=== PATIENT | female | born 1950 | race Caucasian/White ===

== ENCOUNTER 2023-12-04 18:24 | Inpatient (IN) | payer OTHER, SELFPAY ==
[2023-12-04] VITALS (12 sets, daily range): BP systolic 126–198; BP diastolic 69–90; PULSE 60–99; RESP 16–18; TEMP 36.2–36.6; O2SAT 70–99; BMI 22.1
--- NOTE | 2023-12-04 18:41 | DI.RAD.S_ITS ---
PROCEDURE: XR HIP W PEL IF DONE RT 2V INDICATIONS: R hip pain TECHNIQUE: AP pelvis with lateral view(s) of the right hip(s). COMPARISON: None. FINDINGS: Bones: Displaced and impacted right femoral neck fracture. Pelvic ring appears intact. No suspicious bony lesions. Soft tissues: The visualized bowel gas pattern is normal. No suspicious soft tissue calcifications. Atherosclerotic vascular calcifications. IMPRESSION: Displaced and impacted right femoral neck fracture. Dictated by: John Daniels M.D. on 12/04/2023 at 19:26 Approved by: John Daniels M.D. on 12/04/2023 at 19:27
--- NOTE | 2023-12-04 18:41 | DI.RAD.S_ITS ---
PROCEDURE: XR FEMUR RT MIN 2V INDICATIONS: R leg pain TECHNIQUE: 4 views of the femur were acquired. COMPARISON: None. FINDINGS: Bones: Displaced and mildly impacted femoral neck fracture. No suspicious bony lesions. Soft tissues: No suspicious soft tissue calcifications or masses. Atherosclerotic vascular calcifications. IMPRESSION: Displaced and mildly impacted femoral neck fracture. Dictated by: John Daniels M.D. on 12/04/2023 at 19:20 Approved by: John Daniels M.D. on 12/04/2023 at 19:24
--- NOTE | 2023-12-04 18:41 | ED_ITS ---
HPI - Fall General Chief Complaint: Fall Stated Complaint: Right hip/leg pain, lateral rotation Time Seen by Provider: 12/04/23 18:33 Source: EMS Mode of arrival: EMS Limitations: other (Dementia) History of Present Illness HPI Narrative: 72-year-old female with a history of dementia at baseline is ambulatory per report. Not on anticoagulation. Is here for evaluation of right hip/leg pain. She was found by the nursing staff at the facility where she is staying sitting on the floor next to the bed. Patient does state that she is having pain in her right hip. Related Data Home Medications Medication Instructions Recorded Confirmed acetaminophen 325 mg tablet 650 mg PO Q6H PRN Pain (Scale 12/04/23 12/04/23 Score 1-3) aripiprazole 10 mg tablet 10 mg PO DAILY 12/04/23 12/04/23 blood sugar diagnostic (True 12/04/23 12/04/23 Metrix Glucose Test Strip) metformin 500 mg tablet,extended 500 mg PO BID 12/04/23 12/04/23 release 24 hr Allergies Allergy/AdvReac Type Severity Reaction Status Date / Time SULFA ANTIBIOTICS Allergy Uncoded 12/04/23 21:47 Review of Systems Constitutional Constitutional: Reports system reviewed and no additional complaints, except as documented Musculoskeletal Musculoskeletal: Reports system reviewed and no additional complaints, except as documented Integumentary/Breasts Skin/Breast: Reports system reviewed and no additional complaints, except as documented Neurologic Neurologic: Reports system reviewed and no additional complaints, except as documented Patient History Social History household members: none Smoking Status: Unknown if ever smoked Exam Initial Vital Signs Initial Vital Signs: Vital Signs Pulse Rate 83 12/04/23 18:27 Pulse Oximetry 96 12/04/23 18:27 Const General: cooperative HENMT Head: normal to inspection and normocephalic Resp Effort & Inspection: normal respiratory effort Cardio Rate: regular rate Neuro Other: Patient was confused about location. Extrem Other: Discomfort with palpation of the right hemipelvis. Right knee appears to be unremarkable. Course Orders Ordered: ED Orders 12/04/23 18:41 XR femur RT min 2V Stat XR hip w pel if done RT 2V Stat 12/04/23 19:17 Basic Metabolic Panel Stat Complete Blood Count AUTO DIFF Stat 12/04/23 19:38 Consult to Orthopedic Surgery Stat Acetaminophen (Acetaminophen 325 Mg Tablet) 650 mg PO Q6H PRN PRN Reason: Fever/Mild Pain (1-3) Enoxaparin Sodium (Enoxaparin 40 Mg/0.4 Ml Syringe) 40 mg SUBCUT DAILY [facility] Sodium Chloride (Normal Saline 0.9%) 1,000 mls @ 100 mls/hr IV CONT [facility] Last Infusion: 12/04/23 21:10 Dose: Infused Documented By: Admin: 12/04/23 19:10 Dose: 100 mls/hr Documented By: ADELINA Sodium Chloride (Normal Saline 0.9%) 1,000 mls @ 100 mls/hr IV CONT [facility] Last Admin: 12/04/23 22:54 Dose: 100 mls/hr Documented By: Dextrose ([id number]) 100 mls @ 999 mls/hr IV PRN PRN PRN Reason: Hypoglycemia Insulin Human Lispro (Insulin Lispro 100 Unit/Ml 3ml Vial) 0 unit SUBCUT [facility]; Protocol Last Admin: 12/04/23 22:57 Dose: 1 unit Documented By: SR Co-signed By: LORIN Morphine Sulfate (Morphine 4 Mg/Ml Inj) 3 mg IV Q2HR PRN PRN Reason: Pain, Severe (7-10) Naloxone HCl (Naloxone 0.4 Mg/Ml Vial) 0.2 mg IV Q2MIN PRN PRN Reason: Opiate Reversal Ondansetron HCl (Ondansetron 4 Mg/2 Ml Inj) 4 mg IV Q8HR PRN PRN Reason: Nausea And Vomiting Pantoprazole Sodium (Pantoprazole Dr 20 Mg Tablet) 20 mg PO 0600 [facility] Sennosides (Sennosides 8.6 Mg Tablet) 17.2 mg PO BEDTIME [facility] Last Admin: 12/04/23 22:52 Dose: Not Given Documented By: SR Discontinued Medications Insulin Human Lispro (Insulin Lispro 100 Unit/Ml 3ml Vial) 0 unit SUBCUT ACHS [facility]; Protocol Morphine Sulfate (Morphine 4 Mg/Ml Inj) 3 mg IV Q2HR [facility] Vital Signs Vital signs: Vital Signs - 8 hr 12/04/23 18:27 12/04/23 18:29 12/04/23 18:30 Temperature 97.9 F Pulse Rate 83 87 76 Respiratory Rate 16 Blood Pressure 133/69 Pulse Oximetry 96 97 97 Oxygen Delivery Method Room Air 12/04/23 19:14 12/04/23 19:14 12/04/23 19:30 Temperature Pulse Rate 94 H Respiratory Rate Blood Pressure 167/80 H 176/87 H Pulse Oximetry 98 Oxygen Delivery Method 12/04/23 19:30 12/04/23 19:37 12/04/23 20:01 Temperature Pulse Rate 97 H 60 Respiratory Rate Blood Pressure 198/90 H Pulse Oximetry 99 70 L Oxygen Delivery Method 12/04/23 20:07 12/04/23 20:08 Temperature Pulse Rate 99 H 99 H Respiratory Rate Blood Pressure Pulse Oximetry 99 96 Oxygen Delivery Method MDM - Fall Lab Data Attestation: I reviewed the patient's lab results. 12/04/23 19:17 12/04/23 19:17 Labs: Lab Results 12/04/23 Range/Units 19:17 WBC 12.3 H (4.5-11.0) X10^3/uL RBC 4.20 (4.0-5.2) X10^6/uL Hgb 12.2 (12.0-16.0) g/dL Hct 36.0 (36-46) % MCV 85.7 (80-100) fL MCH 29.1 (26-34) PG MCHC 34.0 (30-36) % RDW 12.9 (11.6-14.8) % Plt Count 326 (150-400) X10^3/uL Neut % (Auto) 84.0 H (50-75) % Lymph % (Auto) 9.8 L (25-40) % [place] % (Auto) 4.7 (3-14) % Eos % (Auto) 1.1 L (2-4) % Baso % (Auto) 0.4 (0-2) % Neut # (Auto) 63453 H (2512-5171) /uL Lymph # (Auto) 1200 (5203-3581) /uL [place] # (Auto) 600 (0-900) /uL Eos # (Auto) 100 (0-450) /uL Baso # (Auto) 100 (0-100) /uL Sodium 138 (137-145) mmol/L Potassium 3.5 (3.4-5.1) mmol/L Chloride 104 (98-107) mmol/L Carbon Dioxide 27 (22-32) mmol/L BUN 23 H (7-17) mg/dL Creatinine 0.74 (0.52-1.04) mg/dL Estimated GFR > 60 (>60) mL/min BUN/Creatinine Ratio 31.1 H (6-22) Glucose 259 H (80-110) mg/dL Calcium 9.7 (8.4-10.2) mg/dL Imaging Data Extremity x-ray #1: Radiologist's Impression: PROCEDURE: XR FEMUR RT MIN 2V INDICATIONS: R leg pain TECHNIQUE: 4 views of the femur were acquired. COMPARISON: None. FINDINGS: Bones: Displaced and mildly impacted femoral neck fracture. No suspicious bony lesions. Soft tissues: No suspicious soft tissue calcifications or masses. Atherosclerotic vascular calcifications. IMPRESSION: Displaced and mildly impacted femoral neck fracture. Extremity x-ray #2: Radiologist's Impression: PROCEDURE: XR HIP W PEL IF DONE RT 2V INDICATIONS: R hip pain TECHNIQUE: AP pelvis with lateral view(s) of the right hip(s). COMPARISON: None. FINDINGS: Bones: Displaced and impacted right femoral neck fracture. Pelvic ring appears intact. No suspicious bony lesions. Soft tissues: The visualized bowel gas pattern is normal. No suspicious soft tissue calcifications. Atherosclerotic vascular calcifications. IMPRESSION: Displaced and impacted right femoral neck fracture. MDM Narrative Medical decision making narrative: Baseline mental status per EMS. Does have a right femoral neck fracture. Discussed the case with on-call for Orthopedic surgery who will see the patient after admission. Discussed the admission with hospitalist on- call. I also discussed the case with the patient's son-in-law who is the reported power of divorce attorney. They do agree that the patient is DNR and comfort measures however they are amenable to discussions about surgery in order to have the patient potentially walk again. Discharge Plan Departure Patient Disposition: Admitted As Inpatient Clinical Impression: Femoral neck fracture Qualifiers: Encounter type: initial encounter Fracture type: closed Laterality: right Q ualified Code(s): S72.001A - Fracture of unspecified part of neck of right femur, initial encounter for closed fracture Admit Date/Time: 12/04/23 20:20 Admit Provider: Jaguar Zambrano
[2023-12-04] MEDS: SODIUM CHLORIDE 0.9% 1,000 ML 100 ML IV ×2 (19:10→22:54)
[2023-12-04 19:33] LABS: Add Manual Diff / Slide Review NO; Basophils Absolute Auto 100 /uL (0-100); Basophils Percent Auto 0.4 % (0-2); Eosinophils Absolute Auto 100 /uL (0-450); Eosinophils Percent Auto 1.1 % (2-4); Hemoglobin 12.2 g/dL (12.0-16.0); Lymphocytes Absolute Auto 1200 /uL (1100-4500); Lymphocytes Percent Auto 9.8 % (25-40); Mean Corpuscular Hemoglobin 29.1 PG (26-34); Mean Corpuscular Volume 85.7 fL (80-100); Monocytes Absolute Auto 600 /uL (0-900); Monocytes Percent Auto 4.7 % (3-14); Neutrophils Absolute Auto 10300 /uL (1500-7000); Platelet Count 326 X10^3/uL (150-400); Red Cell Distribution Width 12.9 % (11.6-14.8); White Blood Cell Count 12.3 X10^3/uL (4.5-11.0)
[2023-12-04 19:40] LABS: BUN Creatinine Ratio 31.1 (6-22); Blood Urea Nitrogen 23 mg/dL (7-17); Calcium 9.7 mg/dL (8.4-10.2); Carbon Dioxide 27 mmol/L (22-32); Chloride 104 mmol/L (98-107); Estimated Glomerular Filt Rate > 60 mL/min (>60); Glucose 259 mg/dL (80-110); HEMOLYSIS < 15 (0-50); Potassium 3.5 mmol/L (3.4-5.1); Sodium 138 mmol/L (137-145)
--- NOTE | 2023-12-04 22:11 | PM.HP.1 ---
History of Present Illness History of Present Illness Date Patient Seen: 12/04/23 Chief complaint: Right hip/leg pain, lateral rotation Narrative: The pt is a 72 yo from assisted living facility '[facility]' who was found by staff down and c/o pain in the Rt hip. EMS was called and brought to the ER. She has severe Alzheimer Disease and was not able to answer most questions by me. She is unsure of why she is in the hospital and does not think she is in the hospital. There is no family, and no care attendants by the bedside during my interview. She does not seem to be in distress, resting comfortably. PFSH Social History household members: none Smoking Status: Unknown if ever smoked Meds Home Medications and Allergies Home Medications Medication Instructions Recorded Confirmed Type acetaminophen 325 mg tablet 650 mg PO Q6H PRN Pain (Scale 12/04/23 12/04/23 History Score 1-3) aripiprazole 10 mg tablet 10 mg PO DAILY 12/04/23 12/04/23 History blood sugar diagnostic (True 12/04/23 12/04/23 History Metrix Glucose Test Strip) metformin 500 mg tablet,extended 500 mg PO BID 12/04/23 12/04/23 History release 24 hr Allergies Allergy/AdvReac Type Severity Reaction Status Date / Time SULFA ANTIBIOTICS Allergy Uncoded 12/04/23 21:47 Exam Vital Signs (past 8 hours): - 12/04/23 18:27 12/04/23 18:29 12/04/23 18:30 Temperature 97.9 F Pulse Rate 83 87 76 Respiratory Rate 16 Blood Pressure 133/69 Pulse Oximetry 96 97 97 Oxygen Delivery Method Room Air 12/04/23 19:14 12/04/23 19:14 12/04/23 19:30 Temperature Pulse Rate 94 H Respiratory Rate Blood Pressure 167/80 H 176/87 H Pulse Oximetry 98 Oxygen Delivery Method 12/04/23 19:30 12/04/23 19:37 12/04/23 20:01 Temperature Pulse Rate 97 H 60 Respiratory Rate Blood Pressure 198/90 H Pulse Oximetry 99 70 L Oxygen Delivery Method 12/04/23 20:07 12/04/23 20:08 12/04/23 20:30 Temperature Pulse Rate 99 H 99 H Respiratory Rate Blood Pressure 188/88 H Pulse Oximetry 99 96 Oxygen Delivery Method 12/04/23 21:00 Temperature Pulse Rate Respiratory Rate Blood Pressure 189/81 H Pulse Oximetry Oxygen Delivery Method Oxygen Delivery Method Room Air Const General: healthy appearing and comfortable Resp Auscultation: clear to auscultation bilaterally Cardio Rate: regular rate Rhythm: regular rhythm Objective Labs 12/04/23 19:17 12/04/23 19:17 Labs: Laboratory Results - last 24 hr 12/04/23 19:17 WBC 12.3 H RBC 4.20 Hgb 12.2 Hct 36.0 MCV 85.7 MCH 29.1 MCHC 34.0 RDW 12.9 Plt Count 326 Neut % (Auto) 84.0 H Lymph % (Auto) 9.8 L [place] % (Auto) 4.7 Eos % (Auto) 1.1 L Baso % (Auto) 0.4 Neut # (Auto) 92570 H Lymph # (Auto) 1200 [place] # (Auto) 600 Eos # (Auto) 100 Baso # (Auto) 100 Sodium 138 Potassium 3.5 Chloride 104 Carbon Dioxide 27 BUN 23 H Creatinine 0.74 Estimated GFR > 60 BUN/Creatinine Ratio 31.1 H Glucose 259 H Calcium 9.7 Assessment & Plan Assessment and plan (1) Femoral neck fracture: Qualifiers: Encounter type: initial encounter Fracture type: closed Laterality: right Qualified Code(s): S72.001A - Fracture of unspecified part of neck of right femur, initial encounter for closed fracture Status: Acute (2) Dementia: Status: Acute Plan I spoke with the ER provider regarding the pt's presenting condition and labs and agree with the admission. The pt is calm and in no distress, will have prn pain meds available and antiemetics. Orthopedic physician Dr. Santoyo has been consulted by the ER provider who will evaluate the pt in the AM. NS has been started, home meds reviewed, NPO until ortho sees her. Pt is a DNR/DNI per paperwork from the facility Quality VTE Deep Vein Thrombosis/Pulmonary Embolism Present on Admission: No
[2023-12-04] MEDS: INSULIN LISPRO 100 UNIT/ML 3ML VIAL SUBCUT (22:57)
[2023-12-05] VITALS (13 sets, daily range): BP systolic 99–144; BP diastolic 57–70; PULSE 76–96; RESP 14–18; TEMP 36.2–38.1; O2SAT 92–98; BMI 22.1
--- NOTE | 2023-12-05 | DI.RAD.S_ITS ---
PROCEDURE: XR HIP W PEL IF DONE RT 2V INDICATIONS: JAG TECHNIQUE: AP pelvis and lateral view of the hip acquired. COMPARISON: [facility], CR, XR HIP W PEL IF DONE RT 2V, 12/04/2023, 18:50. [facility], CR, XR HIP W PEL IF DONE RT 2V, 12/05/2023, 22:42. FINDINGS: Intraoperative fluoroscopy images demonstrate right hip arthroplasty. IMPRESSION: Right hip arthroplasty. Dictated by: Mg Murillo M.D. on 12/06/2023 at 2:02 Approved by: Mg Murillo M.D. on 12/06/2023 at 2:03
[2023-12-05] MEDS: MORPHINE 4 MG/ML INJ 3 MG IV ×3 (04:35→14:43)
[2023-12-05 06:50] LABS: Add Manual Diff / Slide Review NO; Basophils Absolute Auto 0 /uL (0-100); Basophils Percent Auto 0.3 % (0-2); Eosinophils Absolute Auto 100 /uL (0-450); Hematocrit 30.4 % (36-46); Hemoglobin 10.7 g/dL (12.0-16.0); Lymphocytes Absolute Auto 900 /uL (1100-4500); Lymphocytes Percent Auto 9.1 % (25-40); Mean Corpuscular HGB Conc 35.1 % (30-36); Mean Corpuscular Hemoglobin 29.9 PG (26-34); Mean Corpuscular Volume 85.1 fL (80-100); Monocytes Absolute Auto 500 /uL (0-900); Monocytes Percent Auto 5.4 % (3-14); Neutrophils Absolute Auto 8000 /uL (1500-7000); Neutrophils Percent Auto 84.2 % (50-75); Platelet Count 264 X10^3/uL (150-400); Red Blood Cell Count 3.58 X10^6/uL (4.0-5.2); Red Cell Distribution Width 12.7 % (11.6-14.8); White Blood Cell Count 9.5 X10^3/uL (4.5-11.0)
[2023-12-05 07:00] LABS: Hemoglobin A1C% w Est Avg Glu 7.4 % (4.0-6.0)
[2023-12-05 07:15] LABS: BUN Creatinine Ratio 27.3 (6-22); Blood Urea Nitrogen 18 mg/dL (7-17); Carbon Dioxide 28 mmol/L (22-32); Chloride 108 mmol/L (98-107); Estimated Glomerular Filt Rate > 60 mL/min (>60); Glucose 203 mg/dL (80-110); HEMOLYSIS < 15 (0-50)
[2023-12-05 07:38] LABS: Calcium 8.8 mg/dL (8.4-10.2); Potassium 3.7 mmol/L (3.4-5.1); Sodium 138 mmol/L (137-145)
[2023-12-05] MEDS: INSULIN LISPRO 100 UNIT/ML 3ML VIAL SUBCUT (08:41)
[2023-12-05] MEDS: SODIUM CHLORIDE 0.9% 1,000 ML 100 ML IV (08:46)
--- NOTE | 2023-12-05 11:29 | CM.DANOTE ---
DCP Assessment Note Pt is a 72yo F, resident of [place], presented with R hip pain/fracture. Pt lives at [facility], a memory care center. PCP: Ragini Rolle. Payor: [facility] [employer] Reviewed chart and team rounds for pt's medical status and initial discharge needs. TROUBLE CLERK attempted to meet with pt but pt was asleep and per EMR, not the best historian due to dementia. TROUBLE CLERK spoke with DPOA/Son-in-law, Shahab Barclay who lives in [facility], via phone call. DPOA was able to confirm pt's short term memory is sketchy which is why she was moved out of her home to a Memory care center ~7 months ago. DPOA stated anticipating coordinating SNF placement before returning to [facility] and inquired about Medicare benefit. TROUBLE CLERK provided information about Medicare benefit and plan of care pending PT/OT recommendations. DPOA stated a preference for SNF closer to [facility] for ease of travel for visitation. DPOA noted that they had scheduled travel on Friday, 4.17 and hopes to have her either placed or back at [facility] before then, if possible. Plan: Pt scheduled to have surgery today, 4.12, and family is anticipating possible SNF placement before returning to [facility]. CM team will plan to follow clinical course closely for assessment of need and coordination of discharge plan. JAZLYN Solis Discharge Planning/Care Management CM Discharge Assessment Start: 12/05/23 11:26 Freq: Status: Active Protocol: Document 12/05/23 11:26 MW (Rec: 12/05/23 11:29 MW [id number]) Discharge Planning Assessment Assigned Supervisor [employer] QUINTIN Ness DPOA/Assigned Designee Name Shahab Barclay, Son-in-law Contact Information [phone] Advance Directives? Yes Advance Directives on File No History Provided By Family Member,Medical Record Has Patient been admitted in last 30 No days? Prior Living Arrangements Assisted Living Comment [facility] Household Members none Type of transporation used prior to Relies on Others admit Facility Name Admitted From: [facility] Willing to Return to Facility? Yes Independent with ADL's No Is patient alert and oriented? No Patient/Family Preference Intermediate Facility Discharge Plan Intermediate Facility Whiteboard Updated in Patient Room with Yes name and ext. # of Supervisor [employer] Comment TROUBLE CLERK spoke with pt's ARACELIS, Shahab, and provided direct extension to DCP desk if further concerns or questions. Please Provide Date Initial DC 12/05/23 Assessment Was Performed Next Review Type Continued Stay Review
--- NOTE | 2023-12-05 12:46 | DIET.CONS2 ---
Dietary Inpatient Consultation Note Admission Date: 12/04/2023 20:20 72 y F admitted for R hip pain/fracture. Nutrition screened for low MNA. Pt has severe Alzheimer Disease living in memory care center. Scheduled for OR today. Chart reviewed. No weight hx available for review. Will continue to monitor for diet advancement and intake to assess nutritional status. Diet: 12/04/23 22:08 NPO Diet Diet Modifications: NPO Type: NPO except for Meds Nutrition Percent Meal Consumed pt npo 12/05/23 08:00 Electronically Signed by: Silke Loja 12/05/23 12:46 Clinical Dietitian [address] [address]
--- NOTE | 2023-12-05 13:21 | PM.PN.1 ---
Subjective Subjective Interval history: 72 F with dementia admitted with a R hip fracture. Pending OR today. Patient complains of pain, having intermittent hallucinations per nursing staff, did not get abilify this morning. She has some hip pain this morning, okay at rest. She thinks she needs to return to work today. Exam Vital Signs (past 8 hours): - 12/05/23 05:55 12/05/23 08:00 Temperature 98.4 F 97.1 F L Pulse Rate 78 76 Respiratory Rate 18 16 Blood Pressure 134/61 140/70 Pulse Oximetry 97 96 Oxygen Flow Rate 0 Oxygen Delivery Method Room Air Oxygen Flow Rate 0 Narrative Exam Narrative: Gen: no acute distress, WDWN Pulm CTA b/l CV: RRR no m/r/g Abd: S NT ND Ext: no edema. Objective Labs 12/05/23 06:10 12/05/23 06:10 Labs: Laboratory Results - last 24 hr 12/04/23 12/05/23 19:17 06:10 WBC 12.3 H 9.5 RBC 4.20 3.58 L Hgb 12.2 10.7 L Hct 36.0 30.4 L MCV 85.7 85.1 MCH 29.1 29.9 MCHC 34.0 35.1 RDW 12.9 12.7 Plt Count 326 264 Neut % (Auto) 84.0 H 84.2 H Lymph % (Auto) 9.8 L 9.1 L [place] % (Auto) 4.7 5.4 Eos % (Auto) 1.1 L 1.0 L Baso % (Auto) 0.4 0.3 Neut # (Auto) 72481 H 8000 H Lymph # (Auto) 1200 900 L [place] # (Auto) 600 500 Eos # (Auto) 100 100 Baso # (Auto) 100 0 Sodium 138 138 Potassium 3.5 3.7 Chloride 104 108 H Carbon Dioxide 27 28 BUN 23 H 18 H Creatinine 0.74 0.66 Estimated GFR > 60 > 60 BUN/Creatinine Ratio 31.1 H 27.3 H Glucose 259 H 203 H Hemoglobin A1c 7.4 H Calcium 9.7 8.8 PFSH Social History household members: none Smoking Status: Unknown if ever smoked Assessment & Plan Assessment & Plan narrative: 1. Pathologic R femur fracture due to osteoporosis, present on admission - OR planned for afternoon. - hold DVT ppx prior to surgery - medically appears optimized prior to surgery 2. DM 2 - monitor with AM labs, on minimal metformin which can be continued shortly after surgery. Glucose 203 this AM, will follow closely. A1c 7.4%. - glucose 130s this afternoon, continue sliding scale only. 3. Dementia with behavioral disturbance - continue aripiprazole, after surgery consider low dose haldol or giving held abilify from this AM. Code: DNR, surrogate garret anguiano Dispo: admit inpatient Quality VTE Deep Vein Thrombosis/Pulmonary Embolism Present on Admission: No
[2023-12-05] MEDS: LACTATED RINGERS 1,000 ML 42 ML IV ×2 (18:42→22:49)
--- NOTE | 2023-12-05 18:44 | PC.NURSE ---
To OR at about 1800. Still having some hallucinations. The family reports this is not unusual for her, she will see her mother and speak to her as if she is there. Pt is only oriented to name if you say her name. She is unable to say her name if you ask her. Knows her birthday if you tell her that. Otherwise globally disoriented. Asking for water most of day, she was unable to understand why she needed surgery and if she should even have it. Family is here. They report her behavior as typical. The daughter did say the pt can become combative. She has not displayed that behavior today. CO made aware in case a bed change should be needed. Pt has been typed and crossed for blood and blood consent has been signed.
--- NOTE | 2023-12-05 20:15 | PM.HP.1 ---
History of Present Illness History of Present Illness Date Patient Seen: 12/05/23 Time Patient Seen: 20:15 Date of Onset of Symptoms: 12/04/23 Chief complaint: Right hip/leg pain, lateral rotation Narrative: This 70-year-old female patient is institutionalized in a memory care facility. She had a fall off of her bed yesterday around 5:00 p.m.. She began screaming in pain and was found on the ground. She was brought here immediately. I obtained history from her daughter and son-in-law who have provided informed consent for today's procedure as well. In discussions with them they stated that she has diabetes well controlled with metformin but otherwise minimal medical comorbidities of which they are aware. She continues to complain of pain in her right hip although at times today she has asked why she is at the hospital [facility] Social History household members: none Smoking Status: Unknown if ever smoked Meds Home Medications and Allergies Home Medications Medication Instructions Recorded Confirmed Type acetaminophen 325 mg tablet 650 mg PO Q6H PRN Pain (Scale 12/04/23 12/04/23 History Score 1-3) aripiprazole 10 mg tablet 10 mg PO DAILY 12/04/23 12/04/23 History blood sugar diagnostic (True 12/04/23 12/04/23 History Metrix Glucose Test Strip) metformin 500 mg tablet,extended 500 mg PO BID 12/04/23 12/04/23 History release 24 hr Allergies Allergy/AdvReac Type Severity Reaction Status Date / Time Sulfa (Sulfonamide Allergy Verified 12/05/23 11:22 Antibiotics) Review of Systems Review of Systems ROS: Yes All systems reviewed with the patient and are negative except as otherwise documented Exam Vital Signs (past 8 hours): - 12/05/23 13:00 12/05/23 15:19 12/05/23 18:31 Temperature 98.4 F 100.5 F H Pulse Rate 92 H 96 H 90 Respiratory Rate 16 16 Blood Pressure 142/57 H 144/65 H 126/65 Pulse Oximetry 96 98 95 Oxygen Delivery Method Room Air Oxygen Delivery Method Room Air Oxygen Flow Rate 0 Narrative Exam Narrative: Right lower extremity: Sensory motor function grossly intact. Does not follow commands. Foot warm and well perfused HENMT Head: normal to inspection Ears: hearing grossly normal bilaterally Eyes General: appearance normal, both eyes and all related structures Neck Neck: normal visual inspection Resp Effort & Inspection: normal respiratory effort and able to speak in complete sentences Cardio Pulses: other (peripheral pulses present) Skin Lesions: no lesions Rashes: no rashes Neuro General: patient alert, patient awake and moves all extremities Objective Imaging Pelvis x-ray: My impression: Displaced right femoral neck fracture Labs 12/05/23 06:10 12/05/23 06:10 Labs: Laboratory Results - last 24 hr 12/05/23 12/05/23 06:10 17:45 WBC 9.5 RBC 3.58 L Hgb 10.7 L Hct 30.4 L MCV 85.1 MCH 29.9 MCHC 35.1 RDW 12.7 Plt Count 264 Neut % (Auto) 84.2 H Lymph % (Auto) 9.1 L [place] % (Auto) 5.4 Eos % (Auto) 1.0 L Baso % (Auto) 0.3 Neut # (Auto) 8000 H Lymph # (Auto) 900 L [place] # (Auto) 500 Eos # (Auto) 100 Baso # (Auto) 0 Sodium 138 Potassium 3.7 Chloride 108 H Carbon Dioxide 28 BUN 18 H Creatinine 0.66 Estimated GFR > 60 BUN/Creatinine Ratio 27.3 H Glucose 203 H Hemoglobin A1c 7.4 H Calcium 8.8 Blood Type B Positive Antibody Screen Negative Crossmatch See Detail Assessment & Plan Assessment and plan (1) Femoral neck fracture: Qualifiers: Encounter type: initial encounter Fracture type: closed Laterality: right Qualified Code(s): S72.001A - Fracture of unspecified part of neck of right femur, initial encounter for closed fracture Status: Acute Plan Cemented right hip hemiarthroplasty today. Operative site initialed. Informed consent signed by family. Will eventually discharge to a rehab facility following surgery. Quality VTE Deep Vein Thrombosis/Pulmonary Embolism Present on Admission: No
[2023-12-05] MEDS: CEFAZOLIN 2 GM/100 ML PREMIX 100 ML IV (20:45)
--- NOTE | 2023-12-05 20:49 | SUR.OPER ---
Supine on padded [place] table with bilateral legs secured in padded positioning boots and suspended in positioning spars, operative leg in traction per surgeon. Head on one pillow. Arm on non-operative side secured on padded armboard <90 degrees abduction. Arm on operative side padded and resting across chest then secured with tape over sheet. Padded perineal post in place per surgeon.
[2023-12-05] MEDS: TRANEXAMIC ACID 1,000 MG VIAL 2000 MG INJ (20:55)
[2023-12-05] MEDS: ROPIVACAINE/EPI/CLONIDINE/KET 50 ML SYRINGE INJ (20:58)
[2023-12-05] MEDS: SODIUM CHLORIDE IRRIG SOLUTION 250 ML, EPINEPHrine 1 MG IRR (21:03)
--- NOTE | 2023-12-05 22:40 | PM.OP.1 ---
Operative Date/Time/Diagnoses Date of procedure: 12/05/23 Pre-op diagnosis: Right femoral neck fracture Post-op diagnosis: same Procedure & Clinicians Procedure: Right hip hemiarthroplasty (18358) Same procedure as scheduled: Yes Surgeon: José Arenas Click Yes if Unassisted: Yes Anesthesia Type: General and Local Operative Notes Estimated Blood Loss (mL): 500 Procedure in detail: Right Cemented Hip Hemiarthroplasty for Femoral Neck Fracture Implants: [employer] Polarstem Cemented Hemiarthroplasty: Size 4 standard offset stem, 45 mm -3 unipolar cobalt chromium head Procedure in Detail: This patient sustained a femoral neck fracture in a ground level fall. Risks and benefits of operative versus nonoperative management were discussed at length and the patient wished to proceed with operative management. ?The patient was met in the preoperative holding area along with her power of admitted attorneys and her daughter. ?All questions were answered. ?The operative site was marked. ?Informed consent was signed. ?The patient was brought back to the operating room and anesthesia was induced. ?A time-out procedure was performed. ?The patient was brought back to the operating room and placed supine on the [place] table. All bony prominences were padded. She was prepped and draped in the usual sterile fashion. No physician clinical education assistant was available for the procedure so I used the docTrackr Gripper system for soft tissue retraction. A time-out procedure was performed following our usual inpatient protocol. She was prepped and draped in the usual sterile fashion. X-rays were displayed during the procedure demonstrating the fracture pattern on the injured hip. I began by making a direct anterior approach to the hip. The TFL and rectus muscles were split and I dissected through the floor of the TFL. The lateral circumflex vessels were identified and coagulated. Cobra retractors were placed superior and inferior to the femoral neck. I released the indirect head of rectus femoris. I made a longitudinal capsulotomy. I placed tag stitches in the capsule. I placed a soft tissue retractor over the tag stitches which remained in place for the remainder of the procedure. I replaced the Cobra retractors intracapsularly. The femoral neck was re-cut with a freshening cut below the site of the femoral neck fracture. The head was removed and measured to determine the appropriate head size for final implants. Because the head was damaged I used head trials to confirm this and found that a 45 mm head fit appropriately in the [place] acetabulum. I placed a retractor over the greater trochanter and released the capsule in 90? of external rotation. I placed a [place] hook and hyperextended and adducted the leg with traction off. I externally rotated to approximately 130? and performed a release of the conjoined tendon. I elevated the femur. I broached up to a size 4 cemented stem. Calcar planing was not necessary as the broach sat directly at the saw cut. I placed trial components and removed all retractors and reduced the hip. I found that it was challenging to reduce, slightly long on the AP fluoroscopic image, and had appropriate canal fill on the AP hip image. I returned to the broaching position replaced retractors and elevated the femur. I then prepared for cementation. Prior to cementation I irrigated the canal, placed a cement restrictor, irrigated the canal again, placed epinephrine-soaked vaginal packing with a whistle-tip catheter, and removed the whistle-tip catheter after insertion of cement. Cement was allowed to dry and I repeated the trialing process. And this is since I used a-3 45 mm head. I still required assistance to reduced the hip. An AP fluoroscopic image demonstrated appropriate leg length and offset. An AP hip image demonstrated good cement interdigitation in the bone and appropriate stem sizing. The hip was stable with maximum external rotation past 120? as well as a 45 degree drop test. I returned to the broaching position. Unipolar hemiarthroplasty head was impacted into place on a clean dry trunnion. All retractors were removed and the hip was reduced. Fluoroscopic images were obtained demonstrating appropriate leg length and offset on an AP pelvis image as well as appropriate positioning of the stem on an AP hip image. The hip was stable with maximum external rotation as well as a 45 degree drop test. The wound was soaked with dilute Betadine and peroxide. The hip was closed using a combination of Vicryl Stratafix and Monocryl sutures. A dilute mixture of ropivacaine epinephrine clonidine and Toradol was infiltrated throughout the wound after closure of the TFL fascia. Dermabond was applied. A ricky dressing was applied. The patient was transferred off of the operating room table and brought to the PACU where she awoke without complication. She was noted to have intact dorsiflexion and plantar flexion of her hallux and ankle as well as a palpable DP pulse. Postoperative images were obtained which corresponded with the intraoperative fluoroscopy. ? Plan for aftercare: Transfer to floor following recovery in PACU Weightbearing as tolerated Mobilize in the halls with assistance of physical therapy beginning tomorrow Aspirin 81 twice per day for DVT prophylaxis Multimodal pain regimen with no IV opioids ordered Anticipate discharge to a rehab facility Follow up at [facility] in 2 weeks
--- NOTE | 2023-12-05 22:52 | DI.RAD.S_ITS ---
PROCEDURE: XR HIP W PEL IF DONE RT 2V INDICATIONS: postop TECHNIQUE: AP pelvis and lateral view of the hip acquired. COMPARISON: [facility], CR, XR FEMUR RT MIN 2V, 12/04/2023, 18:50. [facility], CR, XR HIP W PEL IF DONE RT 2V, 12/04/2023, 18:50. [facility], CR, XR HIP W PEL IF DONE RT 2V, 12/05/2023, 21:42. FINDINGS: Bones: Patient is status post right hip arthroplasty, with hardware components in expected positions. The hip joint appears congruent. The visualized bony structures appear intact. Soft tissues: Overlying postoperative changes are noted. No suspicious soft tissue densities. IMPRESSION: Expected post-operative appearance of a hip arthroplasty. Dictated by: Mg Murillo M.D. on 12/06/2023 at 2:03 Approved by: Mg Murillo M.D. on 12/06/2023 at 2:03
[2023-12-05] MEDS: LACTATED RINGERS 1,000 ML 100 ML IV (23:25)
--- NOTE | 2023-12-05 23:35 | PC.NURSE ---
Addendum entered by Janeth Carmichael R.N. 12/06/23 05:22: Patient has been resting in bed this shift. Sleeping since back from surgery at 2300, does wake up easily and follows simple commands. No pain meds given after surgery, no moaning or grimacing noted. Patient confused d/t dementia, but has been calm. Original Note: Patient back from surgery at 2300, very groggy. Drsg to rt hip cdi and patient able to move toes, ppp.
[2023-12-06] VITALS (8 sets, daily range): BP systolic 92–110; BP diastolic 48–60; PULSE 79–95; RESP 16–18; TEMP 36.1–36.7; O2SAT 93–98
[2023-12-06] MEDS: CEFAZOLIN 2 GM/100 ML PREMIX 100 ML IV (05:01)
[2023-12-06 06:55] LABS: Add Manual Diff / Slide Review NO; Basophils Absolute Auto 0 /uL (0-100); Basophils Percent Auto 0.2 % (0-2); Eosinophils Absolute Auto 0 /uL (0-450); Eosinophils Percent Auto 0.1 % (2-4); Hematocrit 34.2 % (36-46); Hemoglobin 11.7 g/dL (12.0-16.0); Lymphocytes Absolute Auto 400 /uL (1100-4500); Lymphocytes Percent Auto 3.3 % (25-40); Mean Corpuscular HGB Conc 34.1 % (30-36); Mean Corpuscular Volume 87.8 fL (80-100); Monocytes Absolute Auto 400 /uL (0-900); Monocytes Percent Auto 2.7 % (3-14); Neutrophils Absolute Auto 12700 /uL (1500-7000); Neutrophils Percent Auto 93.7 % (50-75); Platelet Count 212 X10^3/uL (150-400); Red Cell Distribution Width 13.6 % (11.6-14.8); White Blood Cell Count 13.6 X10^3/uL (4.5-11.0)
[2023-12-06 07:04] LABS: Blood Urea Nitrogen 18 mg/dL (7-17); Calcium 8.5 mg/dL (8.4-10.2); Carbon Dioxide 19 mmol/L (22-32); Chloride 107 mmol/L (98-107); Estimated Glomerular Filt Rate > 60 mL/min (>60); Glucose 306 mg/dL (80-110); HEMOLYSIS < 15 (0-50); Magnesium 1.6 mg/dL (1.6-2.3); Potassium 4.3 mmol/L (3.4-5.1); Sodium 135 mmol/L (137-145)
[2023-12-06] MEDS: DOCUSATE 100 MG CAPSULE PO ×2 (08:28→22:18)
[2023-12-06] MEDS: ARIPiprazole 10 MG TABLET PO (08:28)
[2023-12-06] MEDS: MAGNESIUM CHLORIDE 64 MG TABLET 128 MG PO (08:28)
--- NOTE | 2023-12-06 08:48 | PM.PNPO.1 ---
Subjective Subjective Date Patient Seen: 12/06/23 Time Patient Seen: 08:48 Interval history: 72-year-old female who resides in a memory care facility. Patient denies pain. Patient is alert but not oriented. Exam Vital Signs (past 8 hours): - 12/06/23 01:07 12/06/23 02:07 12/06/23 06:10 Temperature 97.4 F L 96.9 F L Pulse Rate 79 80 87 Respiratory Rate 16 16 18 Blood Pressure 92/48 L 98/50 L 108/57 L Pulse Oximetry 93 95 96 Oxygen Flow Rate 0 0 0 Oxygen Delivery Method Room Air Oxygen Flow Rate 0 Narrative Exam Narrative: 72-year-old female resting comfortably in bed in no apparent distress. Right hip dressing is clean, dry and intact. Half of the dressing is rolled up. The incision itself is healing well. Motor functions intact bilateral lower extremities. Sensation grossly intact to light touch bilateral lower extremities. Const General: comfortable Nutritional Appearance: average body habitus Orientation: alert Objective Labs 12/06/23 06:29 12/06/23 06:29 Labs: Laboratory Results - last 24 hr 12/05/23 12/06/23 17:45 06:29 WBC 13.6 H RBC 3.90 L Hgb 11.7 L Hct 34.2 L MCV 87.8 MCH 30.0 MCHC 34.1 RDW 13.6 Plt Count 212 Neut % (Auto) 93.7 H Lymph % (Auto) 3.3 L [place] % (Auto) 2.7 L Eos % (Auto) 0.1 L Baso % (Auto) 0.2 Neut # (Auto) 92786 H Lymph # (Auto) 400 L [place] # (Auto) 400 Eos # (Auto) 0 Baso # (Auto) 0 Sodium 135 L Potassium 4.3 Chloride 107 Carbon Dioxide 19 L BUN 18 H Creatinine 0.75 Estimated GFR > 60 BUN/Creatinine Ratio 24.0 H Glucose 306 H D Calcium 8.5 Magnesium 1.6 Blood Type B Positive Antibody Screen Negative Crossmatch See Detail [facility] Social History household members: none Smoking Status: Unknown if ever smoked Assessment & Plan Post-op Postoperative Procedures: Procedures Operation Date: 12/05/23 17:15 Actual Procedure Side Surgeon p Hip Hemiarthroplasty Right José Arenas MD Postoperative day: 21 Postoperative status narrative: Stable status post right cemented hip hemiarthroplasty for femoral neck fracture Postoperative plan narrative: Weight-bearing as tolerated Multimodal pain management Aspirin 81 mg b.i.d. for DVT prophylaxis Follow up [facility] in 2 weeks Disposition, when medically stable per hospitalist Quality VTE Deep Vein Thrombosis/Pulmonary Embolism Present on Admission: No
[2023-12-06] MEDS: INSULIN LISPRO 100 UNIT/ML 3ML VIAL SUBCUT ×4 (09:37→22:37)
[2023-12-06] MEDS: ENOXAPARIN 40 MG/0.4 ML SYRINGE SUBCUT (09:39)
--- NOTE | 2023-12-06 11:05 | PT.IIE ---
Current Diagnoses Unspecified dementia, unspecified severity, without behavioral disturbance, psychotic disturbance, mood disturbance, and anxiety (12/04/23) Fracture of unspecified part of neck of right femur, initial encounter for closed fracture (12/04/23) Surgery Performed Operation Date: 12/05/23 17:15 Actual Procedures p Hip Hemiarthroplasty(Right) - José Arenas MD Physical Therapy Inpatient Evaluation/Re-Eval M1 PT/OT-IP Prior Functional Status Start: 12/06/23 12:52 Freq: NEEDED Status: Active Protocol: Document 12/06/23 11:05 AB (Rec: 12/06/23 13:06 AB [id number]) Medical Review Prior Functional Status Medical History Reviewed Yes Communication with confusion and unable to follow directions Mobility and Gait unable to obtain PLOF and home set up but per ED note: pt was independent with ambulation Social History Household Members none Living Arrangements Other Number of Stairs To Enter/Railing? per EMR: [facility] lives [facility] M2 PT-IP Current Condition Start: 12/06/23 12:52 Freq: NEEDED Status: Active Protocol: Document 12/06/23 11:05 AB (Rec: 12/06/23 13:06 AB [id number]) Physical Therapy Current Condition Current Condition Evaluation Date 12/06/23 Treatment Diagnosis s/p fall; s/; R hip hemiarthroplasty; difficulty in walking Onset Date 12/04/23 M3 PT-IP Subjective Start: 12/06/23 12:52 Freq: NEEDED Status: Active Protocol: Document 12/06/23 11:05 AB (Rec: 12/06/23 13:06 AB [id number]) Subjective Physical Therapy Visit Type Type Initial Evaluation Visit Start Time 11:05 Visit Stop Time 11:45 Number of LAMP DECORATOR Visits 0 Therapy Pain Assessment Pain When Pain Assessed During Mobility Location Right Hip Scale Used unable to state pain scale M4 PT-IP Mobility and Gait Start: 12/06/23 12:52 Freq: NEEDED Status: Active Protocol: Document 12/06/23 11:05 AB (Rec: 12/06/23 13:06 AB [id number]) PT-Bed Mobility Assessment Supine to Sit Supine to Sit Total Assistance,2 Person Assistance,Head of Bed Elevated,Bedrails Sit to Supine Sit to Supine Total Assistance,2 Person Assistance Scooting Scooting to Edge of Bed Dependent PT-Transfer Assessment Sit to and From Stand Sit to and from Stand Total Assistance,2 Person Assistance,Use of Upper Extremities Equipment Transfer Assistive Device Gait Belt,Front Wheeled Walker Orthotic/Prosthetic Devices or Brace: No Comments Mobility Comments pt supine in bed and with confusion. unable to obtain PLOF and home set up. pt only oriented to self. pt can be resistive, agitated easily and accusatory. informed pt regarding current place situation and recent surgery. informed pt regarding anterior hip precautions but pt unable to comprehend. completed supine to sit total A x 2 and max cues. pt with increase confusion and slight hallucinations and unable to redirect. pt also seems to have L sided neglect. pt with increase resistance, increase posterior trunk lean and fear of falling. required initial max A x 1-2 for sitting on EOB but able to sit CGA after repostioning. instructed pt with sit<>stand x 3 attempts total A x 2 and max cues and with increase resistance and pt pushing backwards. assisted pt back to bed total A x 2 and max cues with pt unable to follow directions. positioned pt in bed. call light and table placed within reach. left pt with NAC. Gait Assessment Comments Gait Comments unable at this time PT-Balance Assessment Sitting Balance and Reactions Static Sitting Balance Ability Fair Dynamic Sitting Balance Ability Poor Standing Balance and Reactions Static Standing Balance Ability Poor Dynamic Standing Balance Ability Poor Device Used FWW M5 PT-IP Objective Assessments Start: 12/06/23 12:52 Freq: NEEDED Status: Active Protocol: Document 12/06/23 11:05 AB (Rec: 12/06/23 13:06 AB [id number]) Orientation Orientation/Cognition Orientation Name Safety Awareness Decreased Safety Awareness Memory Description Short Term Impaired,Supervisor [employer] Office Impaired Strength Comments Strength Comments unable to complete MME due to pt's inability to follow directions Muscle Tone Muscle Tone WNL Yes M6 PT-IP Treatment Start: 12/06/23 12:52 Freq: NEEDED Status: Active Protocol: Document 12/06/23 11:05 AB (Rec: 12/06/23 13:06 AB [id number]) Physical Therapy Treatment Education Education Provided Precautions,Weight Bearing Status,Safety M7 PT-IP Assessment and Plan Start: 12/06/23 12:52 Freq: NEEDED Status: Active Protocol: Document 12/06/23 11:05 AB (Rec: 12/06/23 13:06 AB [id number]) PT Summary Assessment and Plan Potential Rehabilitation Potential Poor Status of Condition at Evaluation Evolving Summary Impairments Pain,ROM,Strength,Balance, Coordination,Sensation,Tone, Cognition,Bed Mobility, Transfers,Gait,Activity Tolerance Assessment Summary pt is a 72 y/o F s/p fall and sustained a R femur fx. pt underwent R hip hemiarthroplasty POD 1 and with R hip anterior precautions and is WBAT. pt requiring total A x 2 with bed mobility and unable to transfer. pt with dx dementia and unable to follow directions and is very resistive affecting mobility and carryover of instructions. d/c plan depending on progress. [facility] if they can provide necessary assistance to pt vs SNF rehab. Goals Bed Mobility Goal Minimal Assistance Transfer Goal Minimal Assistance,Front Wheeled Walker Gait Goal Minimal Assistance,Front Wheel Walker Gait Distance 50 Other Goals improve bed mobility, transfers, ambulation using FWW 100 ft CGA Days to Meet Goals 10 Frequency of Treatment Frequency Of Treatment Once a Day Treatment Plan Physical Therapy Treatment Plan Bed Mobility Training,Transfer Training,Gait Training, Therapeutic Exercise,Balance Retraining,Post Op Education, Discharge Planning,Hot or Cold Pack,Neuromuscular Re-ed, Coordination Retraining,Manual Therapy Precautions Anterior Hip Precautions No Hip Extension,No Hip External Rotation Weight Bearing Status Weight Bearing Status Weight Bear as Tolerated Allowed Weight Bearing Amount (enter % RLE WBAT or #) (%) Recommendations To Nursing Amount of Assist Needed Mechanical Lift Discharge Recommendations PT Discharge Recommendations Home with 17/03 Assist Available,Home Health,SNF Rehab Transportation Needs at Discharge Wheelchair/Cabulance,Stretcher /Ambulance
--- NOTE | 2023-12-06 13:09 | CM.DPNOTE ---
DCP Cont Patient discussed in morning rounds. Therapies pending. Dr Tijerina anticipating SNF vs back to memory care with hospice. Reviewed therapy note; patient is unable to follow commands. Home assist vs SNF (mechanical lift) is the recommendation at this time although under these circumstances, patient may not be considered a rehab candidate - cannot follow directions or retain information. SNF referrals were not started. Need to follow up with provider and family re goals of care. JW
--- NOTE | 2023-12-06 13:32 | PM.PN.1 ---
Subjective Subjective Interval history: 72 F with dementia admitted with a R hip fracture. Underwent surgery yesterday. No complaints of shortness of breath, chest pain today. Has some pain with movement in her R hip. Exam Vital Signs (past 8 hours): - 12/06/23 06:10 12/06/23 08:00 Temperature 96.9 F L 97.6 F Pulse Rate 87 82 Respiratory Rate 18 16 Blood Pressure 108/57 L 96/52 L Pulse Oximetry 96 95 Oxygen Flow Rate 0 Oxygen Delivery Method Room Air Oxygen Flow Rate 0 Narrative Exam Narrative: Gen: no acute distress, WDWN Pulm CTA b/l CV: RRR no m/r/g Abd: S NT ND Ext: no edema. Objective Labs 12/06/23 06:29 12/06/23 06:29 Labs: Laboratory Results - last 24 hr 12/05/23 12/06/23 17:45 06:29 WBC 13.6 H RBC 3.90 L Hgb 11.7 L Hct 34.2 L MCV 87.8 MCH 30.0 MCHC 34.1 RDW 13.6 Plt Count 212 Neut % (Auto) 93.7 H Lymph % (Auto) 3.3 L [place] % (Auto) 2.7 L Eos % (Auto) 0.1 L Baso % (Auto) 0.2 Neut # (Auto) 49110 H Lymph # (Auto) 400 L [place] # (Auto) 400 Eos # (Auto) 0 Baso # (Auto) 0 Sodium 135 L Potassium 4.3 Chloride 107 Carbon Dioxide 19 L BUN 18 H Creatinine 0.75 Estimated GFR > 60 BUN/Creatinine Ratio 24.0 H Glucose 306 H D Calcium 8.5 Magnesium 1.6 Blood Type B Positive Antibody Screen Negative Crossmatch See Detail [facility] Social History household members: none Smoking Status: Unknown if ever smoked Assessment & Plan Assessment & Plan narrative: 1. Pathologic R femur fracture due to osteoporosis, present on admission - POD #1 s/p R hip hemiarthoplasty, - held DVT ppx prior to surgery, okay to resume now 2. DM 2 - monitor with AM labs, on minimal metformin which can be continued shortly after surgery. Glucose elevated this AM but now in the 90s after sliding scale. Hold on metformin with bicarb of 19. Will not start lantus over concern for hypoglycemia. 3. Dementia with behavioral disturbance - continue aripiprazole 10 mg daily. Code: DNR, surrogate garret anguiano Dispo: admit inpatient, Pending PT/OT evaluations. Probable SNF Discussed with case management. Quality VTE Deep Vein Thrombosis/Pulmonary Embolism Present on Admission: No
--- NOTE | 2023-12-06 20:20 | PC.NURSE ---
LOC/Safety: Pt scooting down in bed and then placing her legs over the side of the bed, bed alarm does go on but not until she places her leg oob. 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 A short time later entered room again and pt had removed her other IV as well. and adriane made aware. She still has 1 last dose of antibiotics. It is okay to leave out IV and not give second dose. Pt was moved from room 204 to 206 and her family was made aware. Rm 206 is a veiw room and pt keeps trying to climb to end of bed so she can place her legs over the side rail. Pt is also pulling on her bal at times and on her incision. She would take her regular meds but nothing else. Would not even take tylenol for hip pain. She is painful when moved but still adament about no tylenol. This morning even though she was only oriented x1, she was pleasant and ate both of her meals. she did pick at things but would stop when distracted. This evening she is more disoriented and picking at her dressing more and pulling on her bal. UOP is pink tinged. Does stop when distracted. Pt has bed alarm on at all times and except for personnal care the door is open so she can be seen. Pt has been oriented to call light several roverto but has never used it. Bed alarm on at all times.
[2023-12-06] MEDS: ONDANSETRON 4 MG ODT PO (22:17)
[2023-12-06] MEDS: ACETAMINOPHEN 325 MG TABLET 650 MG PO (22:17)
[2023-12-06] MEDS: SENNOSIDES 8.6 MG TABLET 17.2 MG PO (22:18)
[2023-12-07 06:00] VITALS: BP 107/51; PULSE 87; RESP 16; TEMP 36.5; O2SAT 96
[2023-12-07] MEDS: ACETAMINOPHEN 325 MG TABLET 650 MG PO ×2 (06:19→15:06)
[2023-12-07] MEDS: PANTOPRAZOLE DR 20 MG TABLET PO (06:19)
[2023-12-07 06:48] LABS: Add Manual Diff / Slide Review NO; Basophils Absolute Auto 0 /uL (0-100); Basophils Percent Auto 0.4 % (0-2); Eosinophils Absolute Auto 200 /uL (0-450); Eosinophils Percent Auto 2.3 % (2-4); Hematocrit 27.8 % (36-46); Hemoglobin 9.8 g/dL (12.0-16.0); Lymphocytes Absolute Auto 1000 /uL (1100-4500); Lymphocytes Percent Auto 11.6 % (25-40); Mean Corpuscular HGB Conc 35.1 % (30-36); Mean Corpuscular Hemoglobin 30.5 PG (26-34); Mean Corpuscular Volume 86.7 fL (80-100); Monocytes Absolute Auto 600 /uL (0-900); Monocytes Percent Auto 6.2 % (3-14); Neutrophils Absolute Auto 7100 /uL (1500-7000); Neutrophils Percent Auto 79.5 % (50-75); Platelet Count 182 X10^3/uL (150-400); Red Cell Distribution Width 13.7 % (11.6-14.8); White Blood Cell Count 8.9 X10^3/uL (4.5-11.0)
[2023-12-07 07:05] LABS: BUN Creatinine Ratio 30.4 (6-22); Blood Urea Nitrogen 21 mg/dL (7-17); Calcium 8.5 mg/dL (8.4-10.2); Carbon Dioxide 27 mmol/L (22-32); Chloride 109 mmol/L (98-107); Estimated Glomerular Filt Rate > 60 mL/min (>60); Glucose 205 mg/dL (80-110); HEMOLYSIS < 15 (0-50); Magnesium 1.7 mg/dL (1.6-2.3); Potassium 3.7 mmol/L (3.4-5.1); Sodium 137 mmol/L (137-145)
[2023-12-07 08:00] VITALS: BP 113/53; PULSE 81; RESP 18; TEMP 36.6; O2SAT 96
[2023-12-07] MEDS: INSULIN LISPRO 100 UNIT/ML 3ML VIAL SUBCUT ×4 (08:57→21:02)
[2023-12-07] MEDS: ENOXAPARIN 40 MG/0.4 ML SYRINGE SUBCUT (08:58)
[2023-12-07] MEDS: ARIPiprazole 10 MG TABLET PO (08:58)
[2023-12-07] MEDS: DOCUSATE 100 MG CAPSULE PO (08:58)
--- NOTE | 2023-12-07 11:11 | P.PN_ITS ---
Exam Vital Signs (past 8 hours): - 12/07/23 06:00 12/07/23 08:00 Temperature 97.7 F 97.9 F Pulse Rate 87 81 Respiratory Rate 16 18 Blood Pressure 107/51 L 113/53 L Pulse Oximetry 96 96 Oxygen Flow Rate 0 Oxygen Delivery Method Room Air Oxygen Flow Rate 0 Objective Labs 12/07/23 06:15 12/07/23 06:15 Labs: Laboratory Results - last 24 hr 12/07/23 06:15 WBC 8.9 RBC 3.20 L Hgb 9.8 L Hct 27.8 L MCV 86.7 MCH 30.5 MCHC 35.1 RDW 13.7 Plt Count 182 Neut % (Auto) 79.5 H Lymph % (Auto) 11.6 L [place] % (Auto) 6.2 Eos % (Auto) 2.3 Baso % (Auto) 0.4 Neut # (Auto) 7100 H Lymph # (Auto) 1000 L [place] # (Auto) 600 Eos # (Auto) 200 Baso # (Auto) 0 Sodium 137 Potassium 3.7 Chloride 109 H Carbon Dioxide 27 BUN 21 H Creatinine 0.69 Estimated GFR > 60 BUN/Creatinine Ratio 30.4 H Glucose 205 H D Calcium 8.5 Magnesium 1.7 PFSH Social History household members: none Smoking Status: Unknown if ever smoked Assessment & Plan Assessment & Plan narrative: POD#2 s/p right hip hemiarthroplasty. Patient has advanced dementia limits ability to get subjective feedback today during exam. Patient has no s/s of DVT. BLE well perfused and grossly neurovascular intact. Her right hip incision is clean and dry. A new dressing was placed since patient peeled off the previous one. Patient can progress mobility with PT as tolerated. Patient can be discharged per medicine/PT once optimized. Continue current nursing care and pain management. Quality VTE Deep Vein Thrombosis/Pulmonary Embolism Present on Admission: No
--- NOTE | 2023-12-07 12:25 | PT-IP ANOTE ---
Attempted to see pt this afternoon, however pt was sleeping. She did wake up but would not open her eyes. Able to tell me her first and last name and wiggled her toes when prompted but did refuse PT stating she wanted to keep sleeping. Will attempt to see pt again tomorrow.
--- NOTE | 2023-12-07 12:46 | PM.PN.1 ---
Subjective Subjective Interval history: 72 F with dementia admitted with a R hip fracture. POD 2 today. No complaints of shortness of breath, chest pain today. Seemingly forgets she had a hip surgery. Exam Vital Signs (past 8 hours): - 12/07/23 06:00 12/07/23 08:00 Temperature 97.7 F 97.9 F Pulse Rate 87 81 Respiratory Rate 16 18 Blood Pressure 107/51 L 113/53 L Pulse Oximetry 96 96 Oxygen Flow Rate 0 Oxygen Delivery Method Room Air Oxygen Flow Rate 0 Narrative Exam Narrative: Gen: no acute distress, WDWN Pulm CTA b/l CV: RRR no m/r/g Abd: S NT ND Ext: no edema. Objective Labs 12/07/23 06:15 12/07/23 06:15 Labs: Laboratory Results - last 24 hr 12/07/23 06:15 WBC 8.9 RBC 3.20 L Hgb 9.8 L Hct 27.8 L MCV 86.7 MCH 30.5 MCHC 35.1 RDW 13.7 Plt Count 182 Neut % (Auto) 79.5 H Lymph % (Auto) 11.6 L [place] % (Auto) 6.2 Eos % (Auto) 2.3 Baso % (Auto) 0.4 Neut # (Auto) 7100 H Lymph # (Auto) 1000 L [place] # (Auto) 600 Eos # (Auto) 200 Baso # (Auto) 0 Sodium 137 Potassium 3.7 Chloride 109 H Carbon Dioxide 27 BUN 21 H Creatinine 0.69 Estimated GFR > 60 BUN/Creatinine Ratio 30.4 H Glucose 205 H D Calcium 8.5 Magnesium 1.7 PFSH Social History household members: none Smoking Status: Unknown if ever smoked Assessment & Plan Assessment & Plan narrative: 1. Pathologic R femur fracture due to osteoporosis, present on admission - POD #2 s/p R hip hemiarthoplasty, - held DVT ppx prior to surgery, okay to resume now - continue PT/OT. Possible SNF vs discharge home with hospice if unable to tolerate/perform therapies. 2. DM 2 - resume home metformin this evening. - continue EMILY, holding on lantus over concern for hypoglycemia. 3. Dementia with behavioral disturbance - continue aripiprazole 10 mg daily. Code: DNR, surrogate garret anguiano Dispo: admit inpatient, Pending PT/OT evaluations. Probable SNF vs hospice if unable to tolerate or work with therapies. Discussed with case management. Quality VTE Deep Vein Thrombosis/Pulmonary Embolism Present on Admission: No
--- NOTE | 2023-12-07 13:14 | CM.DPC ---
DCP SNF Planning: Per MD, anticipate that pt is slow to come out of anesthesia from Ortho Surgery and hopeful pt will be able to participate more with PT/OT for SNF rehab. If pt not able to ambulate and follow commands and not appropriate for SNF placement due to dementia then MD plans to discuss more Comfort Care focus if needed. Per DIETETIC INTERN, attempted to work with pt and pt sleepy and requesting to sleep but was able to answer questions appropriately and able to follow a few commands and feels pt likely will improve each day towards being a SNF candidate. PT will attempt to work with pt again later. Per DPOA, preference for SNF would be [facility] or [facility] as they [facility]. SW made initial referrals to following [facility] SNFS and faxed clinicals via Secure Email: [facility], [facility], [facility], and [facility] although they are not [place] preferred and could likely only accept if other [facility] SNFs decline accepting patient or have no beds. PASRR completed but will need either Ortho or Hospitalist to sign for exempted hospital discharge due to pt's home med Abilify. Plan: SW to follow closely for further PT/OT to confirm pt appropriate for SNF rehab before return back to [facility] and for above SNFs to review to determine if either can accept. [place] auth for SNF will need to be initiated likely tomorrow Mon when further PT/OT notes in place. QUINTIN Hudson
[2023-12-07 16:00] VITALS: BP 110/57; PULSE 88; RESP 14; TEMP 36.4; O2SAT 96
[2023-12-07] MEDS: METFORMIN HCL 500 MG TABLET PO (17:19)
[2023-12-07 20:00] VITALS: BP 140/86; PULSE 88; RESP 16; TEMP 36.4; O2SAT 97
[2023-12-08] MEDS: PANTOPRAZOLE DR 20 MG TABLET PO (05:46)
[2023-12-08 06:10] VITALS: BP 132/84; PULSE 66; RESP 16; TEMP 36.6; O2SAT 99
[2023-12-08 06:13] LABS: Add Manual Diff / Slide Review NO; Basophils Absolute Auto 0 /uL (0-100); Basophils Percent Auto 0.5 % (0-2); Eosinophils Absolute Auto 300 /uL (0-450); Hematocrit 29.3 % (36-46); Hemoglobin 10.2 g/dL (12.0-16.0); Lymphocytes Absolute Auto 1100 /uL (1100-4500); Lymphocytes Percent Auto 14.6 % (25-40); Mean Corpuscular HGB Conc 34.8 % (30-36); Mean Corpuscular Hemoglobin 30.1 PG (26-34); Mean Corpuscular Volume 86.6 fL (80-100); Monocytes Absolute Auto 400 /uL (0-900); Monocytes Percent Auto 5.9 % (3-14); Neutrophils Absolute Auto 5600 /uL (1500-7000); Platelet Count 211 X10^3/uL (150-400); Red Blood Cell Count 3.38 X10^6/uL (4.0-5.2); Red Cell Distribution Width 13.8 % (11.6-14.8); White Blood Cell Count 7.5 X10^3/uL (4.5-11.0)
[2023-12-08 06:26] LABS: BUN Creatinine Ratio 23.7 (6-22); Blood Urea Nitrogen 14 mg/dL (7-17); Calcium 8.6 mg/dL (8.4-10.2); Carbon Dioxide 24 mmol/L (22-32); Chloride 108 mmol/L (98-107); Estimated Glomerular Filt Rate > 60 mL/min (>60); Glucose 182 mg/dL (80-110); HEMOLYSIS < 15 (0-50); Magnesium 1.6 mg/dL (1.6-2.3); Potassium 3.5 mmol/L (3.4-5.1); Sodium 137 mmol/L (137-145)
[2023-12-08 08:00] VITALS: BP 137/68; PULSE 91; RESP 16; TEMP 36.6; O2SAT 97
[2023-12-08] MEDS: ARIPiprazole 10 MG TABLET PO (08:46)
[2023-12-08] MEDS: INSULIN LISPRO 100 UNIT/ML 3ML VIAL SUBCUT ×3 (08:46→16:56)
[2023-12-08] MEDS: METFORMIN HCL 500 MG TABLET PO ×2 (08:46→16:56)
[2023-12-08] MEDS: DOCUSATE 100 MG CAPSULE PO ×2 (08:46→21:34)
--- NOTE | 2023-12-08 11:03 | OT.IP.EVAL ---
Current Diagnoses Unspecified dementia, unspecified severity, without behavioral disturbance, psychotic disturbance, mood disturbance, and anxiety (12/04/23) Fracture of unspecified part of neck of right femur, initial encounter for closed fracture (12/04/23) Surgery Performed Operation Date: 12/05/23 17:15 Actual Procedures p Hip Hemiarthroplasty(Right) - José Arenas MD Occupational Therapy Inpatient Evaluation/Re-Eval M1 PT/OT-IP Prior Functional Status Start: 12/08/23 11:44 Freq: NEEDED Status: Active Protocol: Document 12/08/23 11:45 [facility] (Rec: 12/08/23 11:57 [facility] [id number]) Medical Review Prior Functional Status Medical History Reviewed Yes Communication with confusion and unable to follow directions Mobility and Gait unable to obtain PLOF and home set up but per ED note: pt was independent with ambulation Activities of Daily Living and IADL's Per case management, pt receives lots of care for her needs. Social History Household Members none Living Arrangements Other Number of Stairs To Enter/Railing? per EMR: pt lives at [facility] M2 OT-IP Current Condition Start: 12/08/23 11:44 Freq: Status: Active Protocol: Document 12/08/23 11:45 [facility] (Rec: 12/08/23 11:57 [facility] [id number]) Occupational Therapy Current Condition Current Condition Evaluation Date 12/08/23 Treatment Diagnosis S/P Right hemiarthrplasty Diagnosis Onset Date 12/04/23 Post Operative Precautions Anterior Hip Precautions No Hip Extension,No Hip External Rotation M3 OT- IP Subjective and Pain Start: 12/08/23 11:44 Freq: Status: Active Protocol: Document 12/08/23 11:45 [facility] (Rec: 12/08/23 11:57 [facility] [id number]) OT- Subjective Occupational Therapy Visit Type Type Initial Evaluation Visit Start Time 10:35 Visit Stop Time 11:03 Occupational Therapy Visit Comments Patient Comments Pt needing encouragement and cues to stay on task and agreed to try to get up. OT Pain Assessment Pain When Pain Assessed During Mobility Pain Present Pain Present Pain Reported Location Right Hip Pain Behaviors Facial Grimacing,Guarding, Moaning M4 OT- IP ADL's Start: 12/08/23 11:44 Freq: Status: Active Protocol: Document 12/08/23 11:45 [facility] (Rec: 12/08/23 11:57 [facility] [id number]) OT [id number] Comments OT Self-Feeding Comments Not at meal time. OT ADL-Grooming Comments OT Grooming Comments Not performed. OT ADL-Oral Care Comments Oral Care Comments Not performed. OT ADL-Dressing General Eval Lower Body Dressing Ability Total Assistance Areas Needing Assistance Socks OT ADL-Toileting General Evaluation Toileting Ability Total Assistance Areas Needing Assistance Manage Clothing,Perform Perineal Hygiene Comments OT Toileting Comments Not able to get pt to the BSC due to poor ability to follow command and due to decreased balance and having pain. OT ADL-Bathing Bathing Type Bathing Type Sponge Bath Comments OT Bathing Comments Sponge bath more appropriate at this time. M5 OT- IP IADL's Start: 12/08/23 11:44 Freq: Status: Active Protocol: Document 12/08/23 11:45 [facility] (Rec: 12/08/23 11:57 [facility] [id number]) OT-Instrumental Activities of Daily Living Home Safety Awareness Awareness of Need for Assistance at Home Decreased Awareness Ability to Problem Solve Emergency Unable to Problem Solve Situations Medication Management Medication Management Caregiver Administers Money Management Money Management Caregiver Provides Assistance Meal Preparation Meal Preparation Caregiver Provides Assist Superintendent Storage Area Superintendent Storage Area Caregiver Provides Assist M6 OT- IP Functional Cognition Start: 12/08/23 11:44 Freq: Status: Active Protocol: Document 12/08/23 11:45 [facility] (Rec: 12/08/23 11:57 [facility] [id number]) Cognitive Factors Limiting Selfcare Function Cognitive Ability Level of Alertness Confusional State Patient Orientation Name Attention Span Ability Unable to Focus,Unable to Sustain Attention Ability to Follow Commands Able to Follow One Step Commands with Increased Time, Able to Follow One Step Commands with Repetition Cognitive Comments Cognitive Assessment Comments Pt mainly just orientated to her name. Pt needing step by step commands, increased time to follow and process commands , needing tactile and verbal cue to follow for mobility needs. Pt not aware that she was soiled or wanting to try to use the BSC. OT- Vision and Hearing OT- Vision Assessment Vision Assessment Comments Pt able to visually scan therapists in the room. M7 OT- IP Mobility and Balance Start: 12/08/23 11:44 Freq: Status: Active Protocol: Document 12/08/23 11:45 [facility] (Rec: 12/08/23 11:57 [facility] [id number]) OT- Bed Mobility Assessment Supine to Sit Supine to Sit Assist Maximum Assistance,2 Person Assistance,Head of Bed Elevated,Bedrails Sit to Supine Sit to Supine Assist Total Assistance,2 Person Assistance OT-Transfer Assessment Sit to and From Stand Sit to and from Stand Maximum Assistance,2 Person Assistance Devices Transfer Assistive Devices Gait Belt,Front Wheeled Walker Comments Mobility Comments Increased time MAXA x2 to get to the edge of the bed with assist to move her legs and to get her trunk upright. MAX AX 2 to stand the FWW and pt not wanting to move her legs and having to sit back down. Total assist to get back to bed as pt needing to be changed as soiled, nursing notified. OT- Balance Assessment Sitting Balance and Reactions Static Sitting Balance Ability Fair Dynamic Sitting Balance Ability Poor Standing Balance and Reactions Static Standing Balance Ability Poor Dynamic Standing Balance Ability Poor M8 OT- IP Objective Assessments Start: 12/08/23 11:44 Freq: Status: Active Protocol: Document 12/08/23 11:45 [facility] (Rec: 12/08/23 11:57 [facility] [id number]) OT Strength Comments Strength Comments Pt not able to follow commands for MMT and per observation during mobility at least 3+/5 for BUE. M9 OT- IP Assessment and Plan Start: 12/08/23 11:44 Freq: Status: Active Protocol: Document 12/08/23 11:45 [facility] (Rec: 12/08/23 11:57 [facility] [id number]) OT Summary Assessment and Plan Potential Rehabilitation Potential Good Analytic Complexity at Evaluation Moderate Summary OT Impairments Pain,Strength,Balance, Functional Cognition, Functional Mobility,Self- Feeding,Grooming,Dressing, Toileting,Bathing,Toilet Transfers,Shower Transfers, Activity Tolerance Progress Towards Goals Slow Progress due to Pain,Slow Progress due to Medical Issues,Slow Progress due to Activity Tolerance,Slow Progress due to Cognition Assessment Summary Pt MOD complexity and main barriers are pain and difficulty to follow commands due to her decreased mentation . At this time pt will need extensive two person assist for all needs. Pending if her facility at [facility] able to provide increased assist would benefit to return home with 17/03 assist and home health versus skilled rehab. Goals Self-Feeding Goal Standby Assistance Grooming Goal Standby Assistance Dressing Goal Moderate Assistance Toileting Goal Moderate Assistance Bathing Goal Moderate Assistance Toilet Transfer Goal Moderate Assistance Shower Transfer Goal Moderate Assistance Days to Meet Goals 25 Frequency of Treatment Frequency Of Treatment Once a Day Treatment Plan OT Treatment Plan ADL Training,Functional Mobility,Patient/Family Education,Discharge Planning Other Treatment Recommendations and Next Transfer to [facility] with MODA X 2 Treatment Focus with FWW. Discharge Recommendations OT Discharge Recommendations Home with 24/ Assist Available,Home Health,SNF Rehab,Home vs SNF Transportation Needs at Discharge Wheelchair/Cabulance,Stretcher /Ambulance
--- NOTE | 2023-12-08 11:18 | PT.IPTN ---
Current Diagnoses Unspecified dementia, unspecified severity, without behavioral disturbance, psychotic disturbance, mood disturbance, and anxiety (12/04/23) Fracture of unspecified part of neck of right femur, initial encounter for closed fracture (12/04/23) Surgery Performed Operation Date: 12/05/23 17:15 Actual Procedures p Hip Hemiarthroplasty(Right) - José Arenas MD Physical Therapy Treatment Note M2 PT-IP Current Condition Start: 12/06/23 12:52 Freq: NEEDED Status: Active Protocol: Document 12/06/23 11:05 [facility] (Rec: 12/06/23 13:06 [facility] [id number]) Physical Therapy Current Condition Current Condition Evaluation Date 12/06/23 Treatment Diagnosis s/p fall; s/; R hip hemiarthroplasty; difficulty in walking Onset Date 12/04/23 M3 PT-IP Subjective Start: 12/06/23 12:52 Freq: NEEDED Status: Active Protocol: Document 12/08/23 10:38 [facility] (Rec: 12/08/23 11:18 [facility] [id number]) Subjective Physical Therapy Visit Type Type Treatment Note Visit Start Time 10:38 Visit Stop Time 11:01 Number of CAR SCRUBBER Visits 0 Physical Therapy Visit Comments Patient Comments Pt is disoriented and makes frequent comments about being in [place] and smoking. Therapy Pain Assessment Pain When Pain Assessed During Mobility Location Right Hip Intensity 6 Scale Used Arreaga-[place] (Faces) M4 PT-IP Mobility and Gait Start: 12/06/23 12:52 Freq: NEEDED Status: Active Protocol: Document 12/08/23 10:38 [facility] (Rec: 12/08/23 11:18 MB [id number]) PT-Bed Mobility Assessment Supine to Sit Supine to Sit Maximum Assistance,2 Person Assistance,Head of Bed Elevated,Bedrails Sit to Supine Sit to Supine Total Assistance,2 Person Assistance Scooting Scooting to Edge of Bed Dependent Scooting Up and Down in Bed Dependent PT-Transfer Assessment Sit to and From Stand Sit to and from Stand Maximum Assistance,Total Assistance,2 Person Assistance ,Use of Upper Extremities Equipment Transfer Assistive Device Gait Belt,Front Wheeled Walker Orthotic/Prosthetic Devices or Brace: No Comments Mobility Comments Pt disoriented throughout treatment, does not track to therapist with her eyes or where to PT is pointing: to chair or BSC and she has trouble following all commands and must continually be returned to task. PT uses HOB to sit pt upright and use of pad to scoot to EOB and PT must place pt's hand on hand rail and RW. STS x2 with total to max A of two people and pt does not WB or weight shift in appropriate manner to take step to BSC to the left, returned to supine and nsg assistance arrived to assist with hygiene after BM PT-Balance Assessment Sitting Balance and Reactions Static Sitting Balance Ability Fair Dynamic Sitting Balance Ability Poor Standing Balance and Reactions Static Standing Balance Ability Poor Dynamic Standing Balance Ability Poor Device Used FWW M5 PT-IP Objective Assessments Start: 12/06/23 12:52 Freq: NEEDED Status: Active Protocol: Document 12/06/23 11:05 [facility] (Rec: 12/06/23 13:06 [facility] [id number]) Orientation Orientation/Cognition Orientation Name Safety Awareness Decreased Safety Awareness Memory Description Short Term Impaired,Sas Sql Developer Impaired Strength Comments Strength Comments unable to complete MME due to pt's inability to follow directions Muscle Tone Muscle Tone WNL Yes M6 PT-IP Treatment Start: 12/06/23 12:52 Freq: NEEDED Status: Active Protocol: Document 12/08/23 10:38 [facility] (Rec: 12/08/23 11:18 MB [id number]) Physical Therapy Treatment Education Education Provided Precautions,Weight Bearing Status,Safety M7 PT-IP Assessment and Plan Start: 12/06/23 12:52 Freq: NEEDED Status: Active Protocol: Document 12/08/23 10:38 [facility] (Rec: 12/08/23 11:18 [facility] [id number]) PT Summary Assessment and Plan Potential Rehabilitation Potential Poor Status of Condition at Evaluation Evolving Summary Impairments Pain,ROM,Strength,Balance, Coordination,Sensation,Tone, Cognition,Bed Mobility, Transfers,Gait,Activity Tolerance Progress Towards Goals Slow Progress - Other Assessment Summary Pt con't to require ongoing re -orientation to task. She requires +2 max to total assistance for bed mobility and two short STS today and she is not able to WB or weight shift well enough or follow commands well enough to step to BSC. She is incontinent of bowel with activity and is unaware of this and therapist cannot orient her to need for BSC. Goals Bed Mobility Goal Minimal Assistance Transfer Goal Minimal Assistance,Front Wheeled Walker Gait Goal Minimal Assistance,Front Wheel Walker Gait Distance 50 Other Goals improve bed mobility, transfers, ambulation using FWW 100 ft CGA Days to Meet Goals 10 Frequency of Treatment Frequency Of Treatment Once a Day Treatment Plan Physical Therapy Treatment Plan Bed Mobility Training,Transfer Training,Gait Training, Therapeutic Exercise,Balance Retraining,Post Op Education, Discharge Planning,Hot or Cold Pack,Neuromuscular Re-ed, Coordination Retraining,Manual Therapy Precautions Anterior Hip Precautions No Hip Extension,No Hip External Rotation Weight Bearing Status Weight Bearing Status Weight Bear as Tolerated Allowed Weight Bearing Amount (enter % RLE WBAT or #) (%) Recommendations To Nursing Amount of Assist Needed Mechanical Lift Discharge Recommendations PT Discharge Recommendations Home with 17/03 Assist Available,Home Health,SNF Rehab Transportation Needs at Discharge Wheelchair/Cabulance,Stretcher /Ambulance
--- NOTE | 2023-12-08 11:54 | CM.DPC ---
Addendum entered by QUINTIN Cordoba 12/08/23 13:20: [place] Authorization sent to Cutter Apprentice Hand, Anastasiya Schofield ([phone]) - Assigned CMVahid, is out of office today but will be back tomorrow for review. Faxed clinicals for prior authorizations to [phone]. MEDICAL LABORATORY SCIENTIST updated DPOA, Shahab, regarding plan to await further progress with PT/OT while pending [place] prior authorization. DPOA noted that him and spouse will be leaving the state for 10-days on Friday, 4.17. DPOA will still be available for coordination of care if necessary via phone ([phone]), very involved and hopeful that pt will be able to attend rehab before returning to [facility] [place]. JAZLYN Solis Original Note: DCP SNF Planning: Per MD, still monitoring if pt is candidate for SNF rehab vs. comfort care. Per PT and OT, pt is still globally confused and needs max assist/redirection. PT/OT still working with pt for possibility of SNF before returning to [facility]. Pending referrals: [facility], [facility], [facility], and [facility]. [facility] left a voice message for DCP stating that they are reviewing and waiting to see more progress with PT/OT. [facility] left a voice message for DCP stating that they are also reviewing and waiting to see more progress with PT/OT. PASRR completed but will need either Ortho or Hospitalist to sign for exempted hospital discharge due to pt's home med Abilify. MEDICAL LABORATORY SCIENTIST called pt's residence, [facility] [place] ([phone]) and spoke with anant [facility] Med [facility]. Lead Med Tech stated pt was previously ambulating independently at baseline and although pt had a noted decrease in activity days before her fall, her gait was still steady. Plan: SW to follow closely for further PT/OT to confirm if pt is appropriate for SNF rehab and acceptance by SNF referrals. [place] auth for SNF initiated and sent, pending more work with PT/OT and progress. JAZLYN Solis
[2023-12-08] MEDS: POTASSIUM CHLORIDE 20 MEQ TAB 40 MEQ PO (12:11)
[2023-12-08] MEDS: MAGNESIUM CHLORIDE 64 MG TABLET 128 MG PO (12:11)
--- NOTE | 2023-12-08 12:11 | P.PN_ITS ---
Subjective Subjective Interval history: 72 F with dementia admitted with a R hip fracture. POD 3 today. No complaints of shortness of breath, chest pain today. Seemingly forgets she had a hip surgery. Exam Vital Signs (past 8 hours): - 12/08/23 06:10 12/08/23 08:00 Temperature 97.8 F 97.8 F Pulse Rate 66 91 H Respiratory Rate 16 16 Blood Pressure 132/84 137/68 Pulse Oximetry 99 97 Oxygen Flow Rate 0 0 Oxygen Delivery Method Room Air Oxygen Flow Rate 0 Narrative Exam Narrative: Gen: no acute distress, WDWN Pulm CTA b/l CV: RRR no m/r/g Abd: S NT ND Ext: no edema. Objective Labs 12/08/23 05:40 12/08/23 05:40 Labs: Laboratory Results - last 24 hr 12/08/23 05:40 WBC 7.5 RBC 3.38 L Hgb 10.2 L Hct 29.3 L MCV 86.6 MCH 30.1 MCHC 34.8 RDW 13.8 Plt Count 211 Neut % (Auto) 75.0 Lymph % (Auto) 14.6 L [place] % (Auto) 5.9 Eos % (Auto) 4.0 Baso % (Auto) 0.5 Neut # (Auto) 5600 Lymph # (Auto) 1100 [place] # (Auto) 400 Eos # (Auto) 300 Baso # (Auto) 0 Sodium 137 Potassium 3.5 Chloride 108 H Carbon Dioxide 24 BUN 14 Creatinine 0.59 Estimated GFR > 60 BUN/Creatinine Ratio 23.7 H Glucose 182 H Calcium 8.6 Magnesium 1.6 PFSH Social History household members: none Smoking Status: Unknown if ever smoked Assessment & Plan Assessment & Plan narrative: 1. Pathologic R femur fracture due to osteoporosis, present on admission - POD #3 s/p R hip hemiarthoplasty, - held DVT ppx prior to surgery, now on Lovenox. - continue PT/OT. Possible SNF vs discharge home with hospice if unable to tolerate/perform therapies. 2. DM 2 - resume home metformin this evening. - continue EMILY, holding on lantus over concern for hypoglycemia. 3. Dementia with behavioral disturbance - continue aripiprazole 10 mg daily. Code: DNR, surrogate garret anguiano Dispo: admit inpatient, Pending PT/OT evaluations. Probable SNF vs hospice if unable to tolerate or work with therapies. Discussed with case management. Quality VTE Deep Vein Thrombosis/Pulmonary Embolism Present on Admission: No
--- NOTE | 2023-12-08 14:36 | PM.PNPO.1 ---
Subjective Subjective Date Patient Seen: 12/08/23 Time Patient Seen: 14:36 Interval history: Milli is very pleasant and appears to be comfortable. She answers questions fluently, but the answers do not correspond to the questions asked. She follows commands w/ prompting. She denies significant pain. Exam Vital Signs (past 8 hours): - 12/08/23 07:00 12/08/23 08:00 Temperature 97.8 F Pulse Rate 91 H Respiratory Rate 16 Blood Pressure 137/68 Pulse Oximetry 97 Oxygen Delivery Method Room Air Oxygen Flow Rate 0 Oxygen Delivery Method Room Air Oxygen Flow Rate 0 Narrative Exam Narrative: 3/5 hip flexors, 4/5 quadriceps, 3/5 hamstrings; 5/5 DF, PF, EHL on right. Sensation to light touch intact throughout RLE. Calf soft, compressible, nontender. Aquacel dressing CDI. Objective Labs 12/08/23 05:40 12/08/23 05:40 Labs: Laboratory Results - last 24 hr 12/08/23 05:40 WBC 7.5 RBC 3.38 L Hgb 10.2 L Hct 29.3 L MCV 86.6 MCH 30.1 MCHC 34.8 RDW 13.8 Plt Count 211 Neut % (Auto) 75.0 Lymph % (Auto) 14.6 L [place] % (Auto) 5.9 Eos % (Auto) 4.0 Baso % (Auto) 0.5 Neut # (Auto) 5600 Lymph # (Auto) 1100 [place] # (Auto) 400 Eos # (Auto) 300 Baso # (Auto) 0 Sodium 137 Potassium 3.5 Chloride 108 H Carbon Dioxide 24 BUN 14 Creatinine 0.59 Estimated GFR > 60 BUN/Creatinine Ratio 23.7 H Glucose 182 H Calcium 8.6 Magnesium 1.6 PFSH Social History household members: none Smoking Status: Unknown if ever smoked Assessment & Plan Post-op Assessment and plan (1) Status post hip hemiarthroplasty: Assessment and Plan narrative: Recovery as expected given dementia. Looks like d/c plan is for SNF prior to return to assisted living. VTE prophylaxis and pain control per hospitalist service. She is currently receiving enoxaparin, which I would recommend continuing x 4 weeks (in lieu of changing to aspirin) given her mental status and decreased mobility. She has absorbable sutures and skin glue, and she can have her Aquacel dressing removed in 10 days at SNF if bringing her in to the office for a wound check is too cumbersome. She can follow up w/ Dr Arenas in 6 weeks for repeat imaging. Postoperative Procedures: Procedures Operation Date: 12/05/23 17:15 Actual Procedure Side Surgeon p Hip Hemiarthroplasty Right José Arenas MD Postoperative day: 3 Quality VTE Deep Vein Thrombosis/Pulmonary Embolism Present on Admission: No
[2023-12-08 16:00] VITALS: BP 168/76; PULSE 116; RESP 16; TEMP 36.9; O2SAT 97
[2023-12-08 21:00] VITALS: BP 166/77; PULSE 84; RESP 16; TEMP 36.4; O2SAT 96
[2023-12-08] MEDS: MELATONIN 3 MG TABLET 9 MG PO (21:33)
[2023-12-08] MEDS: SENNOSIDES 8.6 MG TABLET 17.2 MG PO (21:34)
[2023-12-09] MEDS: ACETAMINOPHEN 325 MG TABLET 650 MG PO ×2 (05:56→15:28)
[2023-12-09] MEDS: PANTOPRAZOLE DR 20 MG TABLET PO (05:57)
[2023-12-09 06:23] VITALS: BP 168/74; PULSE 106; RESP 16; TEMP 36.5; O2SAT 97
[2023-12-09 08:00] VITALS: BP 104/58; PULSE 86; RESP 18; TEMP 36.3; O2SAT 94
[2023-12-09 08:27] VITALS: O2SAT 94
[2023-12-09] MEDS: INSULIN LISPRO 100 UNIT/ML 3ML VIAL SUBCUT ×3 (08:54→18:28)
[2023-12-09] MEDS: ENOXAPARIN 40 MG/0.4 ML SYRINGE SUBCUT (10:35)
--- NOTE | 2023-12-09 11:25 | PT.IPTN ---
Current Diagnoses Unspecified dementia, unspecified severity, without behavioral disturbance, psychotic disturbance, mood disturbance, and anxiety (12/04/23) Fracture of unspecified part of neck of right femur, initial encounter for closed fracture (12/04/23) Presence of unspecified artificial hip joint (12/04/23) Surgery Performed Operation Date: 12/05/23 17:15 Actual Procedures p Hip Hemiarthroplasty(Right) - José Arenas MD Physical Therapy Treatment Note M2 PT-IP Current Condition Start: 12/06/23 12:52 Freq: NEEDED Status: Active Protocol: Document 12/06/23 11:05 AB (Rec: 12/06/23 13:06 AB [id number]) Physical Therapy Current Condition Current Condition Evaluation Date 12/06/23 Treatment Diagnosis s/p fall; s/; R hip hemiarthroplasty; difficulty in walking Onset Date 12/04/23 M3 PT-IP Subjective Start: 12/06/23 12:52 Freq: NEEDED Status: Active Protocol: Document 12/09/23 11:25 AB (Rec: 12/09/23 12:37 AB [id number]) Subjective Physical Therapy Visit Type Type Treatment Note Visit Start Time 11:25 Visit Stop Time 11:50 Number of PARTS PULLER Visits 0 M4 PT-IP Mobility and Gait Start: 12/06/23 12:52 Freq: NEEDED Status: Active Protocol: Document 12/09/23 11:25 AB (Rec: 12/09/23 12:37 AB [id number]) PT-Bed Mobility Assessment Rolling Level of Assist Maximal Assistance,2 Person Assistance Supine to Sit Supine to Sit Total Assistance,2 Person Assistance,Head of Bed Elevated,Bedrails Sit to Supine Sit to Supine Total Assistance,2 Person Assistance,Bedrails Scooting Scooting to Edge of Bed Dependent PT-Transfer Assessment Comments Mobility Comments checked on pt earlier this morning and pt was letheragic and unable to open eyes to do PT. checked back on pt after ~ 1 hour with OT. Co-tx conducted with OT due to pt's complex medical status requiring 2 person assist. pt continues to be lethargic but a little more responsive. pt with dx dementia and requires max cues with all tasks. pt completed supine to sit total A x 2 and max cues. pt with increase posterior trunk leaning in sitting requiring max A x 1-2 for sitting balance. pt was able to tolerate ~ 10 min sitting on EOB with max cues and intermittent max A x 1-2 for sitting balance but able to sit on EOB ~ 15-30 sec SBA but with cues to keep trunk forward. max cues with all tasks and pt can be very resistive and inconsistent with following directions due to dx dementia. pt with limited participation. pt assisted back to bed. total A x 2 and max cues. total A x 2 rolling L<>R and for positioning in bed. call light and table placed within reach. Gait Assessment Comments Gait Comments unable at this time M5 PT-IP Objective Assessments Start: 12/06/23 12:52 Freq: NEEDED Status: Active Protocol: Document 12/06/23 11:05 AB (Rec: 12/06/23 13:06 AB [id number]) Orientation Orientation/Cognition Orientation Name Safety Awareness Decreased Safety Awareness Memory Description Short Term Impaired,Hand Scraper Impaired Strength Comments Strength Comments unable to complete MME due to pt's inability to follow directions Muscle Tone Muscle Tone WNL Yes M6 PT-IP Treatment Start: 12/06/23 12:52 Freq: NEEDED Status: Active Protocol: Document 12/09/23 11:25 AB (Rec: 12/09/23 12:37 AB [id number]) Physical Therapy Treatment Education Education Provided Safety M7 PT-IP Assessment and Plan Start: 12/06/23 12:52 Freq: NEEDED Status: Active Protocol: Document 12/09/23 11:25 AB (Rec: 12/09/23 12:37 AB [id number]) PT Summary Assessment and Plan Potential Rehabilitation Potential Fair Summary Impairments Pain,ROM,Strength,Balance, Coordination,Sensation,Tone, Cognition,Bed Mobility, Transfers,Gait,Activity Tolerance Progress Towards Goals Slow Progress due to Medical Issues,Slow Progress - Other Assessment Summary pt requiring total A x 2 and max cues with all tasks. pt with dx dementia affecting following directions and carryover of tasks. pt will require 17/03 assist: SNF vs memory care LTC. will continue to assess progress. Goals Bed Mobility Goal Minimal Assistance Transfer Goal Minimal Assistance,Front Wheeled Walker Gait Goal Minimal Assistance,Front Wheel Walker Gait Distance 50 Other Goals improve bed mobility, transfers, ambulation using FWW 100 ft CGA Days to Meet Goals 10 Frequency of Treatment Frequency Of Treatment Once a Day Treatment Plan Physical Therapy Treatment Plan Bed Mobility Training,Transfer Training,Gait Training, Therapeutic Exercise,Balance Retraining,Post Op Education, Discharge Planning,Hot or Cold Pack,Neuromuscular Re-ed, Coordination Retraining,Manual Therapy Precautions Anterior Hip Precautions No Hip Extension,No Hip External Rotation Weight Bearing Status Weight Bearing Status Weight Bear as Tolerated Allowed Weight Bearing Amount (enter % RLE WBAT or #) (%) Recommendations To Nursing Amount of Assist Needed Mechanical Lift Discharge Recommendations PT Discharge Recommendations Home with 17/03 Assist Available,Home Health,SNF Rehab Transportation Needs at Discharge Wheelchair/Cabulance,Stretcher /Ambulance
--- NOTE | 2023-12-09 11:55 | OT.IP.TRT ---
Current Diagnoses Unspecified dementia, unspecified severity, without behavioral disturbance, psychotic disturbance, mood disturbance, and anxiety (12/04/23) Fracture of unspecified part of neck of right femur, initial encounter for closed fracture (12/04/23) Presence of unspecified artificial hip joint (12/04/23) Surgery Performed Operation Date: 12/05/23 17:15 Actual Procedures p Hip Hemiarthroplasty(Right) - José Arenas MD Occupational Therapy Treatment Note M2 OT-IP Current Condition Start: 12/08/23 11:44 Freq: Status: Active Protocol: Document 12/08/23 11:45 [facility] (Rec: 12/08/23 11:57 [facility] [id number]) Occupational Therapy Current Condition Current Condition Evaluation Date 12/08/23 Treatment Diagnosis S/P Right hemiarthrplasty Diagnosis Onset Date 12/04/23 Post Operative Precautions Anterior Hip Precautions No Hip Extension,No Hip External Rotation M3 OT- IP Subjective and Pain Start: 12/08/23 11:44 Freq: Status: Active Protocol: Document 12/09/23 11:52 [facility] (Rec: 12/09/23 12:00 [facility] [id number]) OT- Subjective Occupational Therapy Visit Type Type Treatment Note Visit Start Time 11:25 Visit Stop Time 11:50 Occupational Therapy Visit Comments Patient Comments Attempted to get pt up with PT as pt needing extensive assist for needs. Patient/Caregiver Goals Pt wanting for therapists to stop and just wanting to lie back down when attempting to get pt up. OT Pain Assessment Pain When Pain Assessed During Mobility Location Right Hip Pain Behaviors Facial Grimacing,Guarding, Moaning M4 OT- IP ADL's Start: 12/08/23 11:44 Freq: Status: Active Protocol: Document 12/08/23 11:45 [facility] (Rec: 12/08/23 11:57 [facility] [id number]) OT [id number] Comments OT Self-Feeding Comments Not at meal time. OT ADL-Grooming Comments OT Grooming Comments Hand over hand assist to help face pt's face. OT ADL-Oral Care Comments Oral Care Comments Not performed. OT ADL-Dressing General Eval Lower Body Dressing Ability Total Assistance Areas Needing Assistance Socks OT ADL-Toileting General Evaluation Toileting Ability Total Assistance Areas Needing Assistance Manage Clothing,Perform Perineal Hygiene Comments OT Toileting Comments Not able to get pt to the BSC due to poor ability to follow command and due to decreased balance and having pain. OT ADL-Bathing Bathing Type Bathing Type Sponge Bath Comments OT Bathing Comments Sponge bath more appropriate at this time. M5 OT- IP IADL's Start: 12/08/23 11:44 Freq: Status: Active Protocol: Document 12/08/23 11:45 [facility] (Rec: 12/08/23 11:57 [facility] [id number]) OT-Instrumental Activities of Daily Living Home Safety Awareness Awareness of Need for Assistance at Home Decreased Awareness Ability to Problem Solve Emergency Unable to Problem Solve Situations Medication Management Medication Management Caregiver Administers Money Management Money Management Caregiver Provides Assistance Meal Preparation Meal Preparation Caregiver Provides Assist Jewelry Appraiser Jewelry Appraiser Caregiver Provides Assist M6 OT- IP Functional Cognition Start: 12/08/23 11:44 Freq: Status: Active Protocol: Document 12/08/23 11:45 [facility] (Rec: 12/08/23 11:57 [facility] [id number]) Cognitive Factors Limiting Selfcare Function Cognitive Ability Level of Alertness Confusional State Patient Orientation Name Attention Span Ability Unable to Focus,Unable to Sustain Attention Ability to Follow Commands Able to Follow One Step Commands with Increased Time, Able to Follow One Step Commands with Repetition Cognitive Comments Cognitive Assessment Comments Pt mainly just orientated to her name and today very adamant about being content to just stay in bed. OT- Vision and Hearing OT- Vision Assessment Vision Assessment Comments Pt able to visually scan therapists in the room. M7 OT- IP Mobility and Balance Start: 12/08/23 11:44 Freq: Status: Active Protocol: Document 12/09/23 11:52 [facility] (Rec: 12/09/23 12:00 [facility] [id number]) OT- Bed Mobility Assessment Supine to Sit Supine to Sit Assist Total Assistance,2 Person Assistance,Head of Bed Elevated Sit to Supine Sit to Supine Assist Total Assistance,2 Person Assistance OT-Transfer Assessment Comments Mobility Comments Pt needing MAX X 1-2 to help sit at the edge of the bed at pt heavily leaning into posterior tilt. Total assist x2 for bed mobility needs. OT- Balance Assessment Sitting Balance and Reactions Static Sitting Balance Ability Poor Dynamic Sitting Balance Ability Poor Comments Other Balance Tests/Deviations/Treatment Pt leaning into posterior tilt : and to the right and needing cues and assist to try to get to midline. M8 OT- IP Objective Assessments Start: 12/08/23 11:44 Freq: Status: Active Protocol: Document 12/08/23 11:45 [facility] (Rec: 12/08/23 11:57 [facility] [id number]) OT Strength Comments Strength Comments Pt not able to follow commands for MMT and per observation during mobility at least 3+/5 for BUE. M9 OT- IP Assessment and Plan Start: 12/08/23 11:44 Freq: Status: Active Protocol: Document 12/09/23 11:52 [facility] (Rec: 12/09/23 12:00 [facility] [id number]) OT Summary Assessment and Plan Potential Rehabilitation Potential Fair Analytic Complexity at Evaluation Moderate Summary OT Impairments Pain,Strength,Balance, Functional Cognition, Functional Mobility,Self- Feeding,Grooming,Dressing, Toileting,Bathing,Toilet Transfers,Shower Transfers, Activity Tolerance Progress Towards Goals Slow Progress due to Pain,Slow Progress due to Medical Issues,Slow Progress due to Activity Tolerance,Slow Progress due to Cognition Assessment Summary Pt not wanting to get up and just wanting to get back to bed, however a bit confused as pt not realizing already in bed when asking the pt to try to lie down. Pt will need shreyas lift at this time for mobility needs and questionable rehab candidate at this time as pt today resistent to therapy. If pt continues to refuse therapy, pt may be more appropriate for hospice, able to talk to case management and hospitalist of pt's lack of participation. Goals Self-Feeding Goal Standby Assistance Grooming Goal Standby Assistance Dressing Goal Moderate Assistance Toileting Goal Moderate Assistance Bathing Goal Moderate Assistance Toilet Transfer Goal Moderate Assistance Shower Transfer Goal Moderate Assistance Days to Meet Goals 35 Frequency of Treatment Frequency Of Treatment Once a Day Treatment Plan OT Treatment Plan ADL Training,Functional Mobility,Patient/Family Education,Discharge Planning Discharge Recommendations OT Discharge Recommendations Home with 17/03 Assist Available,Home Health,SNF Rehab Transportation Needs at Discharge Stretcher/Ambulance
--- NOTE | 2023-12-09 14:54 | CM.DPC ---
Addendum entered by QUINTIN Hudson 12/09/23 16:03: ADD: Return call from admissions at [facility] and they confirm they can accept pt and provided the [facility] auth and they will see their w/c van availability for tomorrow. Pt might need to go via BLS though?? BF Original Note: DCP SNF Planning: Per MD, pt stable to discharge to SNF or [facility] as pt seems to have pain controlled. LOVE spoke to Vahid Mosley CM this morning and provided update that pt is below baseline as typically independent with steady gait at [facility] and now 2PA with mobility and requiring lots of assist. Vahid states they will auth pt for SNF with auth#[id number] but requesting PT/OT notes to be faxed from today once available. JUDI Melendez kindly faxed updated PT/OT notes from today. Per PT/OT, pt declined therapy today and states she just wants to lay down in bed and not mobilize. LOVE and OT discussed with who plans to discuss with ARACELIS Gudino to determine if they might be agreeable with [facility]. LOVE received a call from [facility] Gudino, has not spoken to MD yet as number in EMR not quite correct. Shahab states he received a call from [facility] stating they had approved SNF auth. LOVE discussed concerns with pt not participating today that [facility] might not auth SNF for long and still need accepting SNF. ARACELIS states pt is far below baseline and they still want to pursue rehab/tx at this time as they do not feel pt ready yet for [facility]. Preference is SNF before return to [facility]. LOVE discussed the reviewing SNFs and ARACELIS remains in agreement with those SNFs as they live in [place]. ARACELIS confirms he has spoken with Rosy at [facility] and if SNF not an option at d/c then [facility] can accept pt back but he is aware they likely would need to hire additional PP CGs. LOVE spoke to Rosy at [facility] [phone] and she confirms above that ideally SNF at d/c but they could accept pt back if family pays for increased care. LOVE called following SNFs reviewing and gave update: [facility], [facility], [facility], [facility]. Requesting answer if they can accept. Plan: SW to follow closely for accepting SNF before return to [facility]. QUINTIN Hudsno
[2023-12-09] MEDS: ARIPiprazole 10 MG TABLET PO (15:29)
[2023-12-09 16:00] VITALS: BP 107/52; PULSE 74; RESP 20; TEMP 36.9; O2SAT 98
--- NOTE | 2023-12-09 17:25 | P.PN_ITS ---
Subjective Subjective Interval history: Patient somnolent and difficult to arouse today. WREATH INSPECTOR spoke with POA who wants to continue trying for SNF and isn't ready for hospice yet. Exam Vital Signs (past 8 hours): - 12/09/23 10:39 12/09/23 16:00 Temperature 98.4 F Pulse Rate 74 Respiratory Rate 20 Blood Pressure 107/52 L Pulse Oximetry 98 Oxygen Delivery Method Room Air Oxygen Flow Rate 0 Oxygen Delivery Method Room Air Oxygen Flow Rate 0 Narrative Exam Narrative: Gen: sleeping Pulm CTA b/l CV: RRR no m/r/g Abd: S NT ND Ext: no edema. Objective Labs 12/08/23 05:40 12/08/23 05:40 PFS Social History household members: none Smoking Status: Unknown if ever smoked Assessment & Plan Assessment & Plan narrative: 1. Pathologic R femur fracture due to osteoporosis, present on admission - POD #4 s/p R hip hemiarthoplasty, - held DVT ppx prior to surgery, now on Lovenox. - continue PT/OT. Possible SNF vs discharge home with hospice if unable to tolerate/perform therapies. 2. DM 2 - resume home metformin this evening. - continue EMILY, holding on lantus over concern for hypoglycemia. 3. Dementia with behavioral disturbance - continue aripiprazole 10 mg daily. Code: DNR, surrogate garret anguiano Dispo: admit inpatient, Pending PT/OT evaluations. Probable SNF vs hospice if unable to tolerate or work with therapies. Discussed with case management. Quality VTE Deep Vein Thrombosis/Pulmonary Embolism Present on Admission: No
[2023-12-09 19:00] VITALS: O2SAT 96
--- NOTE | 2023-12-09 19:30 | PC.NURSE ---
Very sleepy this am. Woke up at 1500. But for a short time only. Took bites. Unable to give meds, to sleepy. MD Newby aware that pt was to sleepy to take meds. Pt also only had 200mls of uop in 12 hours. Encourage the pt to drink fluids. Pt has not been pulling at the bal or dressing. Pt is difficult to progress with rehab, resistive to same. Will cont to enc po fluids.
[2023-12-09 20:00] VITALS: BP 106/60; PULSE 70; RESP 16; TEMP 36.3; O2SAT 96
[2023-12-10 04:00] VITALS: BP 118/76; PULSE 66; RESP 16; TEMP 36.7; O2SAT 98
[2023-12-10 07:00] VITALS: O2SAT 96
[2023-12-10] MEDS: ENOXAPARIN 40 MG/0.4 ML SYRINGE SUBCUT (08:39)
[2023-12-10] MEDS: ACETAMINOPHEN 325 MG TABLET 650 MG PO (08:39)
[2023-12-10] MEDS: ARIPiprazole 10 MG TABLET PO (08:40)
[2023-12-10] MEDS: INSULIN LISPRO 100 UNIT/ML 3ML VIAL SUBCUT (08:41)
[2023-12-10] MEDS: METFORMIN HCL 500 MG TABLET PO (08:43)
--- NOTE | 2023-12-10 09:00 | OT.IP.TRT ---
Current Diagnoses Unspecified dementia, unspecified severity, without behavioral disturbance, psychotic disturbance, mood disturbance, and anxiety (12/04/23) Fracture of unspecified part of neck of right femur, initial encounter for closed fracture (12/04/23) Presence of unspecified artificial hip joint (12/04/23) Surgery Performed Operation Date: 12/05/23 17:15 Actual Procedures p Hip Hemiarthroplasty(Right) - José Arenas MD Occupational Therapy Treatment Note M2 OT-IP Current Condition Start: 12/08/23 11:44 Freq: Status: Active Protocol: Document 12/08/23 11:45 [facility] (Rec: 12/08/23 11:57 [facility] [id number]) Occupational Therapy Current Condition Current Condition Evaluation Date 12/08/23 Treatment Diagnosis S/P Right hemiarthrplasty Diagnosis Onset Date 12/04/23 Post Operative Precautions Anterior Hip Precautions No Hip Extension,No Hip External Rotation M3 OT- IP Subjective and Pain Start: 12/08/23 11:44 Freq: Status: Active Protocol: Document 12/10/23 09:27 [facility] (Rec: 12/10/23 09:33 [facility] [id number]) OT- Subjective Occupational Therapy Visit Type Type Treatment Note Visit Start Time 09:00 Visit Stop Time 09:15 Occupational Therapy Visit Comments Patient Comments Pt needing lots of encouragement to try to sit to the edge of the bed. OT Pain Assessment Pain When Pain Assessed During Mobility Pain Present Pain Present Pain Reported M4 OT- IP ADL's Start: 12/08/23 11:44 Freq: Status: Active Protocol: Document 12/10/23 09:27 [facility] (Rec: 12/10/23 09:33 [facility] [id number]) OT [id number] Comments OT Self-Feeding Comments Pt only able to eat a few bites of food with assist. OT ADL-Grooming Comments OT Grooming Comments Pt able to wash the bottom of her face after set-up of wash cloth. Pt will need assist for completeness for grooming needs. OT ADL-Oral Care Comments Oral Care Comments Pt refused. OT ADL-Dressing General Eval Lower Body Dressing Ability Total Assistance Areas Needing Assistance Socks Comments OT Dressing Comments Total assist for all needs. Noted the dressing coming up and the nurse able to change on the dressing. OT ADL-Bathing Comments OT Bathing Comments Sponge bath more appropriate at this time. M5 OT- IP IADL's Start: 12/08/23 11:44 Freq: Status: Active Protocol: Document 12/08/23 11:45 [facility] (Rec: 12/08/23 11:57 [facility] [id number]) OT-Instrumental Activities of Daily Living Home Safety Awareness Awareness of Need for Assistance at Home Decreased Awareness Ability to Problem Solve Emergency Unable to Problem Solve Situations Medication Management Medication Management Caregiver Administers Money Management Money Management Caregiver Provides Assistance Meal Preparation Meal Preparation Caregiver Provides Assist Contact Worker Contact Worker Caregiver Provides Assist M6 OT- IP Functional Cognition Start: 12/08/23 11:44 Freq: Status: Active Protocol: Document 12/10/23 09:27 [facility] (Rec: 12/10/23 09:33 [facility] [id number]) Cognitive Factors Limiting Selfcare Function Cognitive Ability Level of Alertness Alert,Confusional State Patient Orientation Name Attention Span Ability Capable of Focused Attention, Unable to Focus,Unable to Sustain Attention Ability to Follow Commands Able to Follow One Step Commands with Increased Time, Able to Follow One Step Commands with Repetition Cognitive Comments Cognitive Assessment Comments Pt able to follow commands but not wanting to follow them. Pt needing encouragement and simple commands to follow. M8 OT- IP Objective Assessments Start: 12/08/23 11:44 Freq: Status: Active Protocol: Document 12/08/23 11:45 [facility] (Rec: 12/08/23 11:57 [facility] [id number]) OT Strength Comments Strength Comments Pt not able to follow commands for MMT and per observation during mobility at least 3+/5 for BUE. M9 OT- IP Assessment and Plan Start: 12/08/23 11:44 Freq: Status: Active Protocol: Document 12/10/23 09:27 [facility] (Rec: 12/10/23 09:33 [facility] [id number]) OT Summary Assessment and Plan Potential Rehabilitation Potential Fair Analytic Complexity at Evaluation Moderate Summary OT Impairments Pain,Strength,Balance, Functional Cognition, Functional Mobility,Self- Feeding,Grooming,Dressing, Toileting,Bathing,Toilet Transfers,Shower Transfers, Activity Tolerance Progress Towards Goals Slow Progress due to Pain,Slow Progress due to Medical Issues,Slow Progress due to Activity Tolerance,Slow Progress due to Cognition Assessment Summary Pt needing total assist x2 to sit towards the edge of the bed and heavy use of the green pad to assist. Pt able to partially wash her face with wash cloth after encouragement and set-up. Pt going to skilled rehab today. Goals Self-Feeding Goal Standby Assistance Grooming Goal Standby Assistance Dressing Goal Moderate Assistance Toileting Goal Moderate Assistance Bathing Goal Moderate Assistance Toilet Transfer Goal Moderate Assistance Shower Transfer Goal Moderate Assistance Days to Meet Goals 35 Frequency of Treatment Frequency Of Treatment Once a Day Treatment Plan OT Treatment Plan ADL Training,Functional Mobility,Patient/Family Education,Discharge Planning Discharge Recommendations OT Discharge Recommendations SNF Rehab Transportation Needs at Discharge Stretcher/Ambulance
--- NOTE | 2023-12-10 09:03 | CM.DPC ---
DCP Cont. Reviewed EMR and team rounds for status updates. Pt has been accepted at [facility] for SNF rehab, she will be discharging today and will be transported via BLS due to post-surgical precautions. BLS will pick her up at 12:00 noon, orders and [facility] faxed with signed med list. Notified family of plan, Shahab, son, is agreeable and will f/u with [facility] later this afternoon. No further DCP needs indicated at this time. [facility] Auth# [id number]
--- NOTE | 2023-12-10 09:05 | PT.IPTN ---
Current Diagnoses Unspecified dementia, unspecified severity, without behavioral disturbance, psychotic disturbance, mood disturbance, and anxiety (12/04/23) Fracture of unspecified part of neck of right femur, initial encounter for closed fracture (12/04/23) Presence of unspecified artificial hip joint (12/04/23) Surgery Performed Operation Date: 12/05/23 17:15 Actual Procedures p Hip Hemiarthroplasty(Right) - José Arenas MD Physical Therapy Treatment Note M2 PT-IP Current Condition Start: 12/06/23 12:52 Freq: NEEDED Status: Active Protocol: Document 12/06/23 11:05 AB (Rec: 12/06/23 13:06 AB [id number]) Physical Therapy Current Condition Current Condition Evaluation Date 12/06/23 Treatment Diagnosis s/p fall; s/; R hip hemiarthroplasty; difficulty in walking Onset Date 12/04/23 M3 PT-IP Subjective Start: 12/06/23 12:52 Freq: NEEDED Status: Active Protocol: Document 12/10/23 09:26 TS (Rec: 12/10/23 09:33 TS [id number]) Subjective Physical Therapy Visit Type Type Treatment Note Visit Start Time 09:05 Visit Stop Time 09:25 Number of LOG RAFTER Visits 1 Physical Therapy Visit Comments Patient Comments Pt found resting in bed, confused and requires motivation to participate in PT. Therapy Pain Assessment Pain When Pain Assessed During Mobility Pain Present Pain Present Pain Reported M4 PT-IP Mobility and Gait Start: 12/06/23 12:52 Freq: NEEDED Status: Active Protocol: Document 12/10/23 09:26 TS (Rec: 12/10/23 09:33 TS [id number]) PT-Bed Mobility Assessment Supine to Sit Supine to Sit Total Assistance,2 Person Assistance,Head of Bed Elevated,Bedrails Scooting Scooting Up and Down in Bed Dependent PT-Transfer Assessment Comments Mobility Comments Pt performed heel slides x3 on RLE supine in bed. Supine to sit total assist. Pt sat up for ~2mins, did not fully come to EOB, pt requested to lay down. She scooted to EOB dependent with 2PA. Pt was left in bed, RN notified. Gait Assessment Comments Gait Comments unable at this time PT-Balance Assessment Sitting Balance and Reactions Static Sitting Balance Ability Fair Dynamic Sitting Balance Ability Poor Standing Balance and Reactions Static Standing Balance Ability Poor Dynamic Standing Balance Ability Poor Device Used FWW M5 PT-IP Objective Assessments Start: 12/06/23 12:52 Freq: NEEDED Status: Active Protocol: Document 12/06/23 11:05 AB (Rec: 12/06/23 13:06 AB [id number]) Orientation Orientation/Cognition Orientation Name Safety Awareness Decreased Safety Awareness Memory Description Short Term Impaired,Group Home Impaired Strength Comments Strength Comments unable to complete MME due to pt's inability to follow directions Muscle Tone Muscle Tone WNL Yes M6 PT-IP Treatment Start: 12/06/23 12:52 Freq: NEEDED Status: Active Protocol: Document 12/10/23 09:26 TS (Rec: 12/10/23 09:33 TS [id number]) Physical Therapy Treatment Education Education Provided Safety M7 PT-IP Assessment and Plan Start: 12/06/23 12:52 Freq: NEEDED Status: Active Protocol: Document 12/10/23 09:26 TS (Rec: 12/10/23 09:33 TS [id number]) PT Summary Assessment and Plan Potential Rehabilitation Potential Fair Summary Impairments Pain,ROM,Strength,Balance, Coordination,Sensation,Tone, Cognition,Bed Mobility, Transfers,Gait,Activity Tolerance Progress Towards Goals Slow Progress due to Medical Issues,Slow Progress - Other Assessment Summary Milli is making slow progress with her mobility. She is confused and is resistent to mobility and has difficulty following directions. She requires total assist for sitting up. Once seated she can maintain static balance. PT continues to recommend SNF vs memory care. Goals Bed Mobility Goal Minimal Assistance Transfer Goal Minimal Assistance,Front Wheeled Walker Gait Goal Minimal Assistance,Front Wheel Walker Gait Distance 50 Other Goals improve bed mobility, transfers, ambulation using FWW 100 ft CGA Days to Meet Goals 10 Frequency of Treatment Frequency Of Treatment Once a Day Treatment Plan Physical Therapy Treatment Plan Bed Mobility Training,Transfer Training,Gait Training, Therapeutic Exercise,Balance Retraining,Post Op Education, Discharge Planning,Hot or Cold Pack,Neuromuscular Re-ed, Coordination Retraining,Manual Therapy Precautions Anterior Hip Precautions No Hip Extension,No Hip External Rotation Weight Bearing Status Weight Bearing Status Weight Bear as Tolerated Allowed Weight Bearing Amount (enter % RLE WBAT or #) (%) Recommendations To Nursing Amount of Assist Needed Mechanical Lift Discharge Recommendations PT Discharge Recommendations Home with 17/03 Assist Available,Home Health,SNF Rehab Transportation Needs at Discharge Wheelchair/Cabulance,Stretcher /Ambulance
--- NOTE | 2023-12-10 09:06 | CM.DPNOTE ---
Sarika had [facility], BLS transport at noon today to take to [facility] in [place]. Spoke to Sandra to confirm everything. Nora Masters, [employer] Instructional Interventionist.
--- NOTE | 2023-12-10 09:15 | PM.DS.1 ---
History of Present Illness History of Present Illness Chief complaint: Right hip/leg pain, lateral rotation Narrative: This 70-year-old female patient is institutionalized in a memory care facility. She had a fall off of her bed yesterday around 5:00 p.m.. She began screaming in pain and was found on the ground. She was brought here immediately. I obtained history from her daughter and son-in-law who have provided informed consent for today's procedure as well. In discussions with them they stated that she has diabetes well controlled with metformin but otherwise minimal medical comorbidities of which they are aware. She continues to complain of pain in her right hip although at times today she has asked why she is at the hospital Discharge Providers Provider Date of admission: 12/04/23 20:20 Discharge Date: 12/10/23 Primary care physician: Ragini Rolle MD Consults: 12/04/23 19:38 Consult to Orthopedic Surgery Stat Comment: Consulting Provider: Aly Villareal Reason for consultation: hip fracture Has provider been notified: Yes 12/05/23 23:05 Consult to Discharge Planning Routine Comment: Consult to Occupational Therapy Evaluate & Treat Comment: Physician Instructions: Evaluate and treat Consult to Physical Therapy Evaluate & Treat Comment: Physician Instructions: post op CHRISSY protocol Discharge provider: Boubacar Newby DO Summary Hospital Course Discharge Diagnosis: 1. Pathologic R femur fracture due to osteoporosis, present on admission - POD #4 s/p R hip hemiarthoplasty, - held DVT ppx prior to surgery, now on Lovenox x4 weeks per ortho - PT/OT recommending SNF 2. DM 2 - resume home metformin - continue EMILY, holding on lantus over concern for hypoglycemia. 3. Dementia with behavioral disturbance - continue aripiprazole 10 mg daily. Hospital Course: Admitted for fall resulting in hip fracture. This was repaired by ortho. Initial concern was if patient would be able to participate in therapy due to her dementia, but she did well enough that SNF was recommended. She was discharged to SNF on 4 weeks of SQ lovenox with f/up in ortho clinic. Exam Vital Signs (past 8 hours): - 12/10/23 04:00 Temperature 98.0 F Pulse Rate 66 Respiratory Rate 16 Blood Pressure 118/76 Pulse Oximetry 98 Oxygen Flow Rate 0 Oxygen Delivery Method Room Air Oxygen Flow Rate 0 Narrative Exam Narrative: Gen: alert but not oriented Pulm CTA b/l CV: RRR no m/r/g Abd: S NT ND Ext: no edema. Objective Labs 12/08/23 05:40 12/08/23 05:40 Labs: Laboratory Results - last 24 hr 12/05/23 17:45 Crossmatch See Detail [facility] Social History household members: none Smoking Status: Unknown if ever smoked Discharge Plan Discharge Plan Patient Disposition: SNF Discharge orders & Medications Prescriptions: New enoxaparin [Lovenox] 40 mg/0.4 mL Syringe 40 mg SUBCUT DAILY 28 Days Qty: 4 0RF Continued acetaminophen 325 mg Tablet 650 mg PO Q6H PRN (Reason: Pain (Scale Score 1-3)) metformin 500 mg tablet extended release 24 hr 500 mg PO BID aripiprazole 10 mg tablet 10 mg PO DAILY (DME) True Metrix Glucose Test Strip Strip 1 strip MISCELLANEOUS QAM Rx Instructions: BLOOD SUGAR CHECKS EVERY OTHER DAY Follow up/Referrals: Raigni Rolle MD [Primary Care Provider] - 2 Weeks [facility],MD Merlyn [Non-Staff] - José Arenas MD [Physician] - (Pt has absorbable sutures with skin glue. Can f/u w/ PA in ortho clinic in 2 weeks for wound check, or this can be done at SNF/hospice facility. Follow up w/ Dr Arenas in 6 weeks for repeat imaging.) Diet/Activity/Treatments Diet: Regular Liquid consistency: Normal/Thin Food texture: Regular Activity: Weight-bearing as tolerated Catheter: 2-way [place] Skin/Wound/Dressing Care Dressing: May shower; leave Aquacel dressing in place for 10 days or until follow up in office. Pt has absorbable sutures with skin glue. Can f/u w/ PA in ortho clinic in 2 weeks for wound check, or this can be done at SNF/hospice facility. If dressing becomes saturated prior to 10 days, may remove and replace with clean, dry gauze. No bathing or otherwise soaking incision until completely healed. Do not apply any creams, lotions, or ointments to incision until completely healed. Special Rehabilitation Services Reason for rehabilitation: Post-operative therapy Rehab type: Physical therapy and Occupational therapy Visit Report/Discharge Packet Stand Alone Forms: Patient Portal/API Discharge Data Primary Care Provider: Ragini Rolle VTE Deep Vein Thrombosis/Pulmonary Embolism Present on Admission: No
--- NOTE | 2023-12-10 12:53 | PC.NURSE ---
Transfer; Transfered to [facility]. Report given to Mihaela admitting nurse. Reviewed hospital course and surgical intervention. Ant precautions, received blood, global confusion, needs help with most care. Questions answered. [facility] crew here. Report given. Questions answered. Pt transfered to facility via ambulance.
== END 2023-12-10 12:30 | DRG 522 ==
LOC: ED 20:19 → AC 20:21
PROVIDERS: Internal Medicine; Orthopaedic Surgery Adult Reconstructive Orthopaedic Surgery; Admitting Provider Internal Medicine; Emergency Provider Emergency Medicine; PCP Internal Medicine; Referring Provider Emergency Medicine; Visit Provider Internal Medicine
PROC: 0SRR0JZ Replacement of Right Hip Joint, Femoral Surface with Synthetic Substitute, Open Approach (ICD-10-PCS; CPT 27125; principal; 2023-12-05 17:15)
DX: M80.051A Age-related osteoporosis with current pathological fracture, right femur, initial encounter for fracture (principal); F02.818 Dementia in other diseases classified elsewhere, unspecified severity, with other behavioral disturbance; G30.9 Alzheimer's disease, unspecified; Z66 Do not resuscitate; Z79.84 Long term (current) use of oral hypoglycemic drugs; E11.9 Type 2 diabetes mellitus without complications; Z88.2 Allergy status to sulfonamides
CPT/HCPCS: 36415; 36430; 73502; 73552; 76000; 80048; 82962; 83036; 83735; 85025; 86850; 86900; 86901; 96360; 96361; 97163; 97166; 97530; 97535; 99282; 99284; C1776; P9016; J0171; J0690; J1100; J1650; J1815; J2250; J2270; J2405; J2704; J3010; J3490